=== PATIENT | male | born 1950 | race African-American/Black ===

== ENCOUNTER 2022-02-16 15:56 | Emergency (ER) | payer MEDICARE, MEDICAID, SELFPAY ==
[2022-02-16 16:05] VITALS: BP 150/80; PULSE 93; RESP 16; TEMP 36.8; O2SAT 99
--- NOTE | 2022-02-16 16:46 | ED.BURNSMOKE ---
HPI - Burn/Smoke Inhalation General Chief complaint: Burn/Smoke Inhalation Stated complaint: burn on arm Time Seen by Provider: 02/16/22 16:33 Source: patient Mode of arrival: ambulatory Limitations: no limitations History of Present Illness HPI Narrative: Patient got burn to the right forearm yesterday while grilling for the . No other injuries. Related Data Allergies Allergy/AdvReac Type Severity Reaction Status Date / Time No Known Allergies Allergy Unverified 05/14/17 14:05 Review of Systems Review of Systems: All systems reviewed & are unremarkable except as noted in HPI and below PMFSH Social History Social History Smoking status: Smoker, status unknown Alcohol intake: current Exam Narrative: General appearance: Well-developed, well-nourished Skin: Normal color, 3 x 2 cm second-degree burn at the lateral side of the right forearm Vascular: Normal peripheral pulses, normal capillary refill. Neurologic: Alert and oriented ?3 Course Vital Signs Vital signs: Vital Signs Temperature 36.8 C 02/16/22 16:05 Pulse Rate 93 02/16/22 16:05 Respiratory Rate 16 02/16/22 16:05 Blood Pressure 150/80 H 02/16/22 16:05 Pulse Oximetry 99 02/16/22 16:05 Oxygen Delivery Room Air 02/16/22 16:05 Temperature 36.8 C 02/16/22 16:05 Pulse Rate 93 02/16/22 16:05 Respiratory Rate 16 02/16/22 16:05 Blood Pressure 150/80 H 02/16/22 16:05 Pulse Oximetry 99 02/16/22 16:05 Oxygen Delivery Room Air 02/16/22 16:05 Critical Care Time Critical Care Time Critical Care Time: No Discharge Plan Discharge Clinical Impression: Second degree burn Patient Disposition: Home, Self-Care Condition: Stable Instructions: Antibiotic Form, Second-Degree Burn (ED) Additional Instructions: Return if symptoms are worsening , call your family physician for appointment, take Tylenol as as needed for aches and pain, continue home medications. Prescriptions: New silver sulfadiazine [Silvadene] 1 % cream 1 applic topical BID Qty: 20 0RF Rx Instructions: apply a 1.5 mm thickness Follow-up/Referrals: Bassem Carpenter [Other]
[2022-02-16] MEDS: TETANUS,DIPHTHERIA,AC PERTUSSIS ADULT (0.5 ML) BOOSTRIX IM (17:05)
== END 2022-02-16 17:17 | disposition home or self-care (01) ==
PROVIDERS: Emergency Provider Emergency Medicine
DX: T22.211A Burn of second degree of right forearm, initial encounter (principal); T31.0 Burns involving less than 10% of body surface; Z23 Encounter for immunization; X08.8XXA Exposure to other specified smoke, fire and flames, initial encounter
CPT/HCPCS: 90471; 90715; 99283

== ENCOUNTER 2022-06-07 05:03 | Emergency (ER) | payer MEDICARE, MEDICAID, SELFPAY ==
[2022-06-07 05:15] VITALS: BP 169/62; PULSE 102; RESP 18; TEMP 37.3; O2SAT 99
[2022-06-07] MEDS: AMOXICILLIN/CLAVULANATE K 875-125 MG TAB 1 TABLET PO (06:23)
[2022-06-07] MEDS: HYDROcodone/acetaminophen (*CRX) 5-325 MG TABLET 1 TAB PO (06:23)
--- NOTE | 2022-06-07 06:57 | ED.GENADULT ---
HPI - General Adult General Chief complaint: Dental/Oral Stated complaint: dental pain, Left side facial pain/numbness Time Seen by Provider: 06/07/22 05:39 History of Present Illness HPI narrative: A 72-year-old male presenting ED with dental pain. Patient has had long history of poor dentition. Over the last several weeks he has noticed increased swelling along his left jaw line as well as increased pain. He has been treating his pain with oral agent. However since yesterday has not been controlling his pain. He denies fever chills. He denies swelling in his mouth or his throat. Denies difficulty breathing. Patient is attempting to see a dentist however is having difficulty finding 1 due to his insurance. Related Data Allergies Allergy/AdvReac Type Severity Reaction Status Date / Time atorvastatin Allergy Intermediate Rash Verified 06/07/22 05:20 Review of Systems Review of Systems: CONSTITUTIONAL: Denies night sweats. EYES: No eye pain ENT: Denies rhinorrhea CARDIOVASCULAR: Denies palpitations RESPIRATORY: Denies hemoptysis GASTROINTESTINAL: Denies hematemesis GENITOURINARY: Denies hematuria. SKIN: Denies rash MUSCULOSKELETAL: Denies myalgia. NEUROLOGIC: Denies weakness. PSYCHIATRIC: Denies delusions PMFSH Past Medical History Medical History HTN (hypertension) Social History Social History Smoking status: Smoker, status unknown Alcohol intake: current Exam Narrative: APPEARANCE: No apparent distress. Head atraumatic. EYES: PERRLA/EOMI, NOSE: Normal no drainage NECK: Supple, Trachea midline Oral: Patient has poor dentition with caries and essentially all of his teeth. He has swear swelling in area of fluctuance along the left lower jaw line. Point of care ultrasound revealed a fluid collection along the mandible that is concerning for abscess. RESPIRATORY: CTAB, No increased work of breathing. CARDIOVASCULAR: S1S2 appreciated ABDOMINAL: Soft, nontender, nondistended, MUSCULOSKELETAl: No obvious deformities NEURO: Alert. Moving 4/4 extremities SKIN:: Warm, dry. Normal color PSYCHIATRIC: Normal affect Course Vital Signs Vital signs: Vital Signs Temperature 99.2 F 06/07/22 05:15 Pulse Rate 102 H 06/07/22 05:15 Respiratory Rate 18 06/07/22 05:15 Blood Pressure 169/62 H 06/07/22 05:15 Pulse Oximetry 99 06/07/22 05:15 Oxygen Delivery Room Air 06/07/22 05:15 Temperature 99.2 F 06/07/22 05:15 Pulse Rate 102 H 06/07/22 05:15 Respiratory Rate 18 06/07/22 05:15 Blood Pressure 169/62 H 06/07/22 05:15 Pulse Oximetry 99 06/07/22 05:15 Oxygen Delivery Room Air 06/07/22 05:15 Medical Decision Making MDM Narrative Medical decision making narrative: This is a 72-year-old male presenting ED with dental pain. He has not area of swelling along his left jaw line. He has point of care ultrasound which identified a fluid collection along patient's jaw line. This is concerning for abscess. It is too deep for me to drain in the emergency department. I discussed the option of transferring the patient to another hospital which would have a specialist to drain his abscess but he is concerned that the cost of the ambulance transport. I will provide the patient with an oral surgeon in our area. The patient would like to work with his insurance company and see if he can find outpatient management. He will also be discharged with pain medication and a course of Augmentin. If the patient is unable to arrange outpatient management of his jaw incursion return to emergency department that has an oral surgeon on staff. Vital Signs Vital Signs: Vital Signs Temperature 99.2 F 06/07/22 05:15 Pulse Rate 102 H 06/07/22 05:15 Respiratory Rate 18 06/07/22 05:15 Blood Pressure 169/62 H 06/07/22 05:15 Pulse Oximetry 99 06/07/22 05:15 Oxygen Deliver
[2022-06-07 07:25] VITALS: BP 132/85; PULSE 77; RESP 18; O2SAT 100
== END 2022-06-07 07:28 | disposition home or self-care (01) ==
PROVIDERS: Emergency Provider Emergency Medicine; PCP Physician Assistant
DX: K04.7 Periapical abscess without sinus (principal); I10 Essential (primary) hypertension
CPT/HCPCS: 99283; A9270

== ENCOUNTER 2024-04-10 14:47 | Emergency (ER) | payer MEDICARE, MEDICAID, SELFPAY ==
[2024-04-10 14:56] VITALS: BP 124/64; PULSE 71; RESP 16; TEMP 36.3; O2SAT 100
--- NOTE | 2024-04-10 15:38 | ED.SKABFB ---
HPI - Skin/Abscess/Foreign Bdy General Chief complaint: Extremity Problem,Nontraumatic Stated complaint: Right Knee Pain Source: patient, RN notes reviewed and old records reviewed Mode of arrival: ambulatory Limitations: no limitations History of Present Illness HPI narrative: Patient presents with complaints of small painful bump to the skin of the right knee cap. He reports that this has been present for approximately a month, some days it is worse than others. It can be tender to the touch. He denies any drainage. He does report sometimes it looks as though it has a head on it. He denies any fever, chills, sweats. He denies any injury or trauma. Related Data Home Medications Medication Instructions Recorded Confirmed aspirin 81 mg chewable tablet 81 mg PO DAILY 04/10/24 04/10/24 rosuvastatin 40 mg tablet 40 mg PO DAILY 04/10/24 04/10/24 Allergies Allergy/AdvReac Type Severity Reaction Status Date / Time atorvastatin Allergy Intermediate Rash Verified 04/10/24 14:52 Review of Systems Review of Systems: All systems reviewed & are unremarkable except as noted in HPI and below Constitutional: Constitutional: Reports no additional constitutional complaints ENT: Reports system reviewed and no additional complaints, except as documented Cardiovascular: Cardiovascular: Reports no additional cardiovascular complaints Respiratory: Respiratory: Reports no additional respiratory complaints Gastrointestinal: Gastrointestinal: Reports no additional gastrointestinal complaints Integumentary/Breasts: Skin/Breast: Reports as per HPI [facility] Past Medical History Medical History HTN (hypertension) Social History Social History Smoking status: Smoker, status unknown Alcohol intake: current Comments At the time of my signature, I reviewed and agree with the nursing past medical, surgical, social, and family history. There is no relevant family history pertinent to the patient complaint. Exam Const: General: cooperative, no acute distress, alert and awake Orientation/consciousness: oriented to person, oriented to place and oriented to time HENMT: Head: normal to inspection Resp: Effort & Inspection: normal respiratory effort and able to speak in complete sentences Auscultation: clear to auscultation bilaterally, no crackles, no rales, no rhonchi and no wheezes Cardio: Palpation: normal PMI Rate: regular rate Rhythm: regular rhythm Heart sounds: S1 normal heart sound present and S2 normal heart sound present Skin: Other: 1 mm pustule noted to the right knee, consistent with ingrown hair. Neuro: General: oriented to person, oriented to place and oriented to time Cranial nerves: Yes CN's II-XII intact bilaterally Psych: Appearance: grossly normal Thought process: Normal thought process present Insight: Good insight present (Psych) Judgement: Good judgement present (Psych) Course Course Level of Care: Express Care Visit Vital Signs Vital signs: Vital Signs Temperature 97.4 F L 04/10/24 14:56 Pulse Rate 71 04/10/24 14:56 Respiratory Rate 16 04/10/24 14:56 Blood Pressure 124/64 04/10/24 14:56 Pulse Oximetry 100 04/10/24 14:56 Oxygen Delivery Room Air 04/10/24 14:56 Temperature 97.4 F L 04/10/24 14:56 Pulse Rate 71 04/10/24 14:56 Respiratory Rate 16 04/10/24 14:56 Blood Pressure 124/64 04/10/24 14:56 Pulse Oximetry 100 04/10/24 14:56 Oxygen Delivery Room Air 04/10/24 14:56 Reviewed MDM - Skin/Abscess/Foreign Bdy MDM Narrative Medical decision making narrative: Patient with small pustule to the skin of the right knee. Reports symptom waxes and wanes, has been present for approximately 1 month. It appears to be an ingrown hair. Discharge home with prescription for mupirocin. Follow-up with primary care provider. Emergency department for
== END 2024-04-10 15:47 | disposition home or self-care (01) ==
PROVIDERS: Emergency Provider Nurse Practitioner Family; PCP Physician Assistant
DX: L73.1 Pseudofolliculitis barbae (principal)
CPT/HCPCS: 99213; G0463

== ENCOUNTER 2025-01-24 21:04 | Emergency (ER) | payer MEDICARE, MEDICAID, SELFPAY ==
--- OUTSIDE RECORDS SUMMARY | 2025-01-24 21:06 | XMS_ITS | Encounter Summary ---
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 Reinforcing Steel Worker Wire Mesh Name Role Phone Lulu Khanna MD Primary Care Provider Encounter Details Date Type Department Care Team (Late st Contact Info) Description 10/19/2018 Lab Requisition [facility] Care D[facility] Lab [address] [place] [id number] Glenroy Terry DO [address] [address] Social History Tobacco Use Types Packs/Day Years Used Date Smoking Tobacco: Never Assessed Sex and Gender Information Value Date Recorded Sex Assigned at Not on file Legal Sex Male 6:00 PM CDT Gender Identity Not on file Sexual Orientation Not on file documented as of this encounter Plan of Treatment Not on file documented as of this encounter Procedures Procedure Name Priority Date/Time Associated Diagnosis Comments DERMATOPATHOLOGY Routine 10/19/2018 12:0 0 AM HAND SPRING REPAIRER HELPER documented in this encounter Results * DERMATOPATHOLOGY (10/19/2018 12:00 AM HAND SPRING REPAIRER HELPER) Case Report Dermatopathology Report Case: [id number] Authorizing Provider: Glenroy Terry DO Collected: 10/19/2018 12:00 AM Pathologist: Anastasiya Bains MD Received: 10/19/2018 02:23 PM Specimen: Skin, right face 9 4:30 PM HAND SPRING REPAIRER HELPER DERMATOPATHOLOGY LABORATORY Final Diagnosis Specimen A. SKIN, right face: PIGMENTED SEBORRHEIC KERATOSIS (L82.1) 9 4:30 PM HAND SPRING REPAIRER HELPER DERMATOPATHOLOGY LABORATORY Clinical History Inflammed tag 4:30 PM [facility] DERMATOPATHOLOGY LABORATORY Gross Description Specimen A: Received is one formalin filled container labeled with the patient's name and designated right face. The specimen consists of a shave biopsy measuring 8x5x2 mm. Jar 0. 4:30 PM [facility] DERMATOPATHOLOGY LABORATORY Microscopic Description Specimen A. SKIN, right face: Sections show an acanthotic lesion composed of relatively uniform keratinocytes. There is hyperkeratosis and pseudo horn cysts. Pigment is present in the keratinocytes composing this tumor. 4:30 PM [facility] DERMATOPATHOLOGY LABORATORY Disclaimer An external and internal positive and negative controls are appropriate for the histochemical, immunohistochemical and immunofluorescence stain(s) in this case (if any), except where stated explicitly. The performance characteristics of the stain(s) cited in this report were developed and its performance characteristic determined by the Dermatopathology Laboratory at [facility], directed by Dr. Gee Dooley. These tests need not be, and therefore are not, approved by the [place] Food and Drug Administration. The tests are used for clinical purposes. Billing Codes Specimen Charges Stain Charges 40286 1 4:30 PM [facility] DERMATOPATHOLOGY LABORATORY Embedded Images 4:30 PM [facility] DERMATOPATHOLOGY LABORATORY Pathology/Cytolog y TISSUE SPECIMEN FROM SKIN / Unknown 10/19/2018 10/19/2018 2:23 PM HAND SPRING REPAIRER HELPER Glenroy Terry DO LAB - PATHOLOGY/CYTOLOGY ORDERA BLES Final Result DERMATOPATHOLOGY LABORATORY [facility] - Department of Dermatology [address] [place] [address], [address]th Floor Lab [address] [place], [place] [id number] [place] [address] documented in this encounter Visit Diagnoses Not on filedocumented in this encounter Care Teams Reinforcing Steel Worker Wire Mesh Relationship Specialty Start Date End Date Lulu Khanna MD [address] [place] [address] PCP - General 10/19/18 documented as of this encounter
--- OUTSIDE RECORDS SUMMARY | 2025-01-24 21:06 | XMS_ITS | Clinical Summary ---
Author Organization [facility] Address [address] [facility] [address] [place] [address] Care Team Providers Care Foreign Policy Officer Name Role Phone Lulu Khanna MD Primary Care Provider [phone] Source Comments [facility],non-owned Affiliates and Associated Physician Practices is amultiple site organization consisting of ambulatory clinics and hospital sitesin [place], [place], [place] and [place]. This disclosure is being madepursuant to the Care Everywhere program and may not contain all information available regarding this patient. Last updated 18.[facility] Social History Tobacco Use Types Packs/Day Years Used Date Smoking Tobacco: Never Assessed Sex and Gender Information Value Date Recorded Sex Assigned at Not on file Legal Sex Male 6:00 PM CDT Gender Identity Not on file Sexual Orientation Not on file Plan of Treatment Health Maintenance Due Date Last Done Comments COLOGUARD (AGES 45-75) - COL ON CA SCREENING 1950 COLON MONITORING 1950 COLONOSCOPY - COLON CA SCREENING 1950 CT COLONOGRAPHY - COLON CA SCREENING 1950 Colorectal Cancer Screening 1950 FIT - COLON CA SCREENING 1950 FLEX SIG - COLON CA SCREENING 1950 LIPID TESTING 1950 HEPATITIS C SCREENING 02/22/1968 DTAP/TDAP/TD VACCINES (1 - Tdap) 1969 PNEUMOCOCCAL VACCINE 50+ (1 of 1 - PCV) 02/27/2000 ZOSTER VACCINE (1 of 2) 02/27/2000 COVID-19 VACCINE ( - 2023-2 5 season) 2024 DEPRESSION SCREENING 09/19/2024 Respiratory Syncytial Virus (RSV) Vaccine Pt: or over 60 yrs (1 - 1-dose 75+ series) 2025 INFLUENZA VACCINE (Season Ended) 2025 HEPATITIS B VACCINE Aged Out No longe r eligible based on patient's age to complete this topic HIB VACCINE Aged Out No longer eligi ble based on patient's age to complete this topic HPV VACCINE Aged Out No longer eligi ble based on patient's age to complete this topic MENINGOCOCCAL (Group B) VACC INE SHARED DECISION-MAKING Aged Out No longer eligibl e based on patient's age to complete this topic MENINGOCOCCAL GROUPS A/C/Y/W VACCINE Aged Out No longer eligible b ased on patient's age to complete this topic Care Teams Foreign Policy Officer Relationship Specialty Start Date End Date Lulu Khanna MD [address] [place] [address] PCP - General 10/19/18
--- OUTSIDE RECORDS SUMMARY | 2025-01-24 21:07 | XMS_ITS | Clinical Summary ---
Author Organization [facility] Address [address] [place] [id number] Care Team Providers Care Nail Welter Name Role Phone Mindy Oseguera NP Primary Care Provider [phone] Allergies Active Allergy Reactions Criticality Noted Date Comments Atorvastatin Rash Medium 10/30/2019 Alendronate Unknown 10/19/2023 Medications aspirin 81 mg enteric coated tablet Take 1 tablet (81 mg total) by mouth daily Active ibotokdr-vuo-HV-lycopen -lutein 0.4-300-250 mg-mcg-mcg tabletIndications:Vitam in Deficiency Prevention 1 tablet Active solifenacin (VESIcare) 10 mg tablet Take 1 tablet (10 mg total) by mouth daily 90 tablet 3 023 Active Additional Information Patient not taking.Reported on 09/10/2024 calcium carbonate-vitamin D3 1,500 mg (600 mg elemental)-400 unit capsule Take 1 capsule by mouth daily 30 capsule 5 024 Active rosuvastatin (CRESTOR) 40 mg tabletIndications:Pure hypercholesterolemia Take 1 tablet (40 mg total) by mouth daily 024 2024 Active triamcinolone (KENALOG) 0.1 % cream Apply topically 2 (two) times a day 30 g 1 024 Active Active Problems Problem Noted Date Diagnosed Date Medicare annual wellness visit, subsequent 09/14 Assessment & Plan (09/14/2024 8:55 AM GENERAL HELPER): CBC, CMP, lipid panel, PSA ordered. Colonoscopy last completed: 09/2023 Vaccinations: COVID, Shingrix, Prevnar, Pneumovax, Flu Lung caner screening CT last completed 09/2023, repeat CT ordered. AAA screening US completed 08/2023 with stable results. Repeat wellness exam in one year. Bilateral sciatica 01/04/2024 Assessment & Plan (01/04/2024 10:06 AM CDT): We are going to start with a Medrol Dosepak and an x-ray of the lumbar spine physical therapy is an option further evaluation and treatment based on results and x-ray Atypical nevi 09/07/2023 Assessment & Plan (09/07/2023 11:44 AM GENERAL HELPER): Concerning, sending to derm Age-related osteoporosis apolonia youssef current pathological fracture 09/07/2023 Assessment & Plan (09/14/2024 8:51 AM GENERAL HELPER): Chronic, controlled with daily Vitamin D and Calcium supplements. Patient was unable to tolerate bisphosphonate causes vomiting and muscle cramping. DEXA scan UTD repeat next year. Assessment & Plan (03/12/2024 6:44 AM CDT): Can not tolerate fosomax, will stay with calcium and vitamin D Assessment & Plan (10/19/2023 11:06 AM GENERAL HELPER): Can not tolerate fosomax, will stay with calcium and vitamin D Assessment & Plan (09/29/2023 12:37 PM GENERAL HELPER): Chronic, uncontrolled. Patient to discontinue Fosamax due to muscle cramping. Patient to begin daily calcium and vitamin D supplement. Patient to follow up with DEVANTE Carpenter in 3 weeks to discuss other treatment options for his osteoporosis. Assessment & Plan (09/07/2023 12:38 PM GENERAL HELPER): Educated, discussed options, elected to start Fosamax. 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 Follow up in 6 months. Assessment & Plan (01/02/2024 6:22 AM CDT): Continue D, add calcium Assessment & Plan (09/07/2023 12:33 PM GENERAL HELPER): Continue D, add calcium Assessment & Plan (06/02/2022 10:57 AM CDT): Continue vitamin-D Assessment & Plan (03/16/2021 11:19 AM CDT): Continue taking 5000 daily Assessment & Plan (09/10/2020 12:03 PM GENERAL HELPER): CPM Assessment & Plan (03/12/2020 11:35 AM CDT): CPM History of prostate cancer 02/01/2018 Assessment & Plan (09/10/2024 11:16 AM GENERAL HELPER): Diagnosed in 2014, underwent radiation treatment. Following with urology yearly. Assessment & Plan (01/02/2024 6:22 AM CDT): Stable with no issues Assessment & Plan (09/07/2023 12:33 PM GENERAL HELPER): Stable with no issues Assessment & Plan (07/05/2023 12:08 PM CDT): stable Assessment & Plan (06/02/2022 10:56 AM CDT): Patient is stable and followed by Urology Assessment & Plan (03/16/2021 11:18 AM CDT): Patient is followed by Urology and doing well Assessment & Plan (03/12/2020 11:32 AM CDT): Followed by oncology Tinnitus of both ears 01/27/2018 Assessment & Plan (03/12/2020 11:34 AM CDT): This is new to me, we did discuss options will send to ENT/Audiology for eval Mixed hyperlipidemia 04/25/2017 Assessment & Plan (09/14/2024 8:52 AM GENERAL HELPER): Chronic, controlled with Crestor 40 mg daily. Follow up in 6 months. Lab Results Component Value Date CHOL 187 09/10/2024 CHOL 176 03/13/2024 CHOL 266 (H) 07/05/2023 Lab Results Component Value Date HDL 61 09/10/2024 HDL 54 03/13/2024 HDL 64 07/05/2023 Lab Results Component Value Date LDLCALC 107 09/10/2024 LDLCALC 102 03/13/2024 LDLCALC 185 (H) 07/05/2023 Lab Results Component Value Date TRIG 108 09/10/2024 TRIG 102 03/13/2024 TRIG 86 07/05/2023 Assessment & Plan (03/12/2024 6:44 AM CDT): Patient is to continue present medications, work on diet and exercise as discussed, we did discuss the medications and potential side effects and signs and symptoms that would warrant calling office. Follow up routine. Assessment & Plan (01/02/2024 6:22 AM CDT): Patient is to continue present medications, work on diet and exercise as discussed, we did discuss the medications and potential side effects and signs and symptoms that would warrant calling office. Follow up routine. Assessment & Plan (10/19/2023 11:08 AM GENERAL HELPER): Patient is to continue present medications, work on diet and exercise as discussed, we did discuss the medications and potential side effects and signs and symptoms that would warrant calling office. Follow up routine. Assessment & Plan (09/07/2023 12:33 PM GENERAL HELPER): Patient is to continue present medications, work on diet and exercise as discussed, we did discuss the medications and potential side effects and signs and symptoms that would warrant calling office. Follow up routine. Assessment & Plan (01/12/2023 2:41 PM CDT): Patient is to continue present medications, work on diet and exercise as discussed, we did discuss the medications and potential side effects and signs and symptoms that would warrant calling office. Follow up routine. Assessment & Plan (06/02/2022 10:56 AM CDT): Continue current meds, labs as ordered, adjustments will be made as needed Assessment & Plan (11/30/2021 3:40 PM CDT): Patient is to continue present medications, work on diet and exercise as discussed, we did discuss the medications and potential side effects and signs and symptoms that would warrant calling office. Follow up routine. Assessment & Plan (03/16/2021 11:18 AM CDT): Patient is to continue present medications, work on diet and exercise as discussed, we did discuss the medications and potential side effects and signs and symptoms that would warrant calling office. Follow up routine. Assessment & Plan (02/12/2021 1:49 PM CDT): Patient is to continue present medications, work on diet and exercise as discussed, we did discuss the medications and potential side effects and signs and symptoms that would warrant calling office. Follow up routine. Assessment & Plan (09/10/2020 12:02 PM GENERAL HELPER): Diet and labs as ordered Assessment & Plan (03/12/2020 11:33 AM CDT): Very mild, OTC fish oil, diet and exercise, labs next visit PAD (peripheral artery disease) ([facility]/HCC) 2016 Assessment & Plan (09/14/2024 8:53 AM GENERAL HELPER): Chronic, stable. Patient to continue on Crestor 40 mg daily. Follow up in 6 months. Assessment & Plan (03/12/2024 6:44 AM CDT): This is stable and non-smoker Assessment & Plan (01/02/2024 6:22 AM CDT): This is stable and non-smoker Assessment & Plan (10/19/2023 11:05 AM GENERAL HELPER): This is stable and non-smoker Assessment & Plan (07/05/2023 12:08 PM CDT): Stable, no current issues Assessment & Plan (01/12/2023 2:41 PM CDT): Not a current issue Assessment & Plan (06/02/2022 10:56 AM CDT): Patient is stable will continue to follow Assessment & Plan (11/30/2021 3:39 PM CDT): Currently no issues Assessment & Plan (03/16/2021 11:18 AM CDT): Patient had recent screening that was within normal limits will continue to follow Assessment & Plan (09/10/2020 12:02 PM GENERAL HELPER): Not an issue Assessment & Plan (03/12/2020 11:33 AM CDT): Currently not an issue, must stop smoking, I offered my assistance Acquired absence of left leg above knee 06/04/20 Assessment & Plan (09/14/2024 8:46 AM GENERAL HELPER): Patient has left lower leg prostatic, received 2 years ago. He ambulates with prostatic and a cane. Denies any recent falls. Follow up in 6 months. Assessment & Plan (03/12/2024 6:43 AM CDT): No current issues Assessment & Plan (01/02/2024 6:22 AM CDT): No current issues Assessment & Plan (10/19/2023 11:05 AM GENERAL HELPER): No current issues Assessment & Plan (09/07/2023 12:27 PM GENERAL HELPER): Stable with no issues Assessment & Plan (07/05/2023 12:07 PM CDT): No current issues Assessment & Plan (03/02/2023 10:59 AM CDT): stable Assessment & Plan (01/12/2023 2:41 PM CDT): Has prosthesis Assessment & Plan (06/02/2022 10:54 AM CDT): Patient has a new prosthesis and is having no issues Assessment & Plan (11/30/2021 3:40 PM CDT): Stable, will follow Assessment & Plan (03/16/2021 11:18 AM CDT): Patient has prosthesis and is doing well Assessment & Plan (09/10/2020 12:02 PM GENERAL HELPER): Will follow Assessment & Plan (03/12/2020 11:32 AM CDT): Pending new prosthesis, no issues Enlarged prostate with lower urinary tract sympt oms (LUTS) 06/04/2016 Assessment & Plan (09/14/2024 8:52 AM GENERAL HELPER): Chronic, stable patient following with urology. No longer taking any medications. Assessment & Plan (03/12/2024 6:43 AM CDT): This is currently stable will continue to Assessment & Plan (01/02/2024 6:22 AM CDT): This is currently stable will continue to Assessment & Plan (06/02/2022 10:55 AM CDT): Patient sees urology is currently controlled with medication Assessment & Plan (03/16/2021 11:18 AM CDT): Patient is seen Neurology in doing well Assessment & Plan (03/12/2020 11:32 AM CDT): Currently controlled with no medications, will follow Resolved Problems Problem Noted Date Diagnosed Date Resolved Date Muscle cramping 09/29/2023 09/14/2024 Assessment & Plan (09/29/2023 12:36 PM GENERAL HELPER): Patient to discontinue Fosamax. Patient given Toradol injection 60 mg in office. Patient prescribed Tramadol 50 mg TID PRN for pain. Patient to increase daily water intake. Follow up with DEVANTE Carpenter in 3 weeks. Right leg pain 07/05/2023 09/10/2024 Left elbow pain 07/05/2023 09/10/2024 Assessment & Plan (07/05/2023 11:28 AM CDT): New, not controlled, start with x-ray Near syncope 03/02/2023 09/10/2024 Assessment & Plan (03/02/2023 11:00 AM CDT): Suspect due to smoking pot, dong great now, educated BRBPR (bright red blood per rectum) 01/12/2023 09/10/2024 Assessment & Plan (01/12/2023 2:42 PM CDT): Colonoscopy UTD, suspect hemorrhoids, add fiber to diet, if this returns will get colonscopy Genital lesion, male 12/28/2022 024 Assessment & Plan (12/28/2022 6:55 PM CDT): One round shaped lesion with smaller vesicle like lesions within, mild drainage, itching+, tenderness + Likely genital herpes Valtrex 1g BID x 10 days STD work-up: GC urine, trich urine, RPR, HIV 1/2 UA negative Follow up with PCP for persisting symptoms Go to the ER if symptoms worsen, fever, chills, nausea, vomiting, abdominal pain, Dental abscess 06/08/2022 09/10/2024 Assessment & Plan (06/08/2022 4:35 PM CDT): - pt reassured no signs of stroke causing numbness to face - neuro exam normal. - suspect numbness of lip/jaw due to compression of nerve from infection - continue augmentin - f/u with dental apt to have tooth pulled Hordeolum externum of left lower eyelid 04/23/2021 09/10/2024 Assessment & Plan (04/23/2021 1:57 PM CDT): Hot compress, massage and medications if this does not resolve will send to optometry BMI 30.0-30.9,adult 01/28/2021 09/10/20 24 Assessment & Plan (01/28/2021 1:12 PM CDT): Healthy diet exercise and weight reduction follow-up 6 months Bronchitis 01/28/2021 09/10/2024 Assessment & Plan (02/12/2021 1:50 PM CDT): Lungs sound much better, good pulse ox, suspect mild COPD, will hold off on inhaled steroids, will add mucinex Assessment & Plan (02/05/2021 12:03 PM CDT): I want patient to finish his doxycycline I am going to add 1 g Rocephin today repeat is Medrol Dosepak and give him a Proventil inhaler I will follow-up with him next week Cough 01/28/2021 09/10/2024 Assessment & Plan (02/05/2021 12:04 PM CDT): Continue [id number] Robitussin and Mucinex medicines as ordered follow-up on Patient was doing better after I gave him a hand-held nebulizer Cellulitis of right lower extremity 03/12/2020 09/10/2024 Assessment & Plan (03/12/2020 11:35 AM CDT): This is new, medications as ordered, skin care, we did discuss s/s that would warrant further eval and treatment Smoker 10/03/2017 09/14/2024 Assessment & Plan (10/19/2023 11:05 AM GENERAL HELPER): Quit 3 months ago Assessment & Plan (09/07/2023 12:33 PM GENERAL HELPER): Encourage stopping Assessment & Plan (06/02/2022 10:56 AM CDT): Patient and I had a detailed discussion on smoking cessation. We did discuss the numerous options to include medications, patches and gum. I have offered my assistance and we did discuss the option for smoking sensation class. Assessment & Plan (11/30/2021 3:38 PM CDT): Patient and I had a detailed discussion on smoking cessation. We did discuss the numerous options to include medications, patches and gum. I have offered my assistance and we did discuss the option for smoking sensation class. Assessment & Plan (03/16/2021 11:19 AM CDT): Patient and I had a detailed discussion on smoking cessation. We did discuss the numerous options to include medications, patches and gum. I have offered my assistance and we did discuss the option for smoking sensation class. Assessment & Plan (02/05/2021 12:04 PM CDT): Patient and I had a detailed discussion on smoking cessation. We did discuss the numerous options to include medications, patches and gum. I have offered my assistance and we did discuss the option for smoking sensation class. Spent 3 minutes discussing with patient the importance of quitting smoking and options for doing so he is going to use some nicotine gum Assessment & Plan (03/12/2020 11:34 AM CDT): Patient and I had a detailed discussion on smoking cessation. We did discuss the numerous options to include medications, patches and gum. I have offered my assistance and we did discuss the option for smoking sensation class. Nicotine dependence, cigaret chanel, uncomplicated 06/04/2016 09/14/2024 Assessment & Plan (02/12/2021 1:49 PM CDT): He quit smoking and is using nicotine gum Assessment & Plan (09/10/2020 12:02 PM GENERAL HELPER): quit Assessment & Plan (03/12/2020 11:33 AM CDT): Patient and I had a detailed discussion on smoking cessation. We did discuss the numerous options to include medications, patches and gum. I have offered my assistance and we did discuss the option for smoking sensation class. Solitary pulmonary nodule 06/04/2016 Assessment & Plan (07/05/2023 12:09 PM CDT): This showed stability, no further work up Assessment & Plan (03/16/2021 11:19 AM CDT): Patient's last CT in 2017 revealed stability for greater than 2 years no further follow-up was recommended Assessment & Plan (09/10/2020 12:03 PM GENERAL HELPER): 2 year stability, no furhter work up from CT 2017 Assessment & Plan (03/12/2020 11:34 AM CDT): 2 year stability in 2017, no further imaging Encounters Date Type Department Care Team Description 01/16/2025 Results Follow-Up [facility] [address] [place] [address] [address] [place] [address] Mindy Oseguera NP 01/04/2025 1:28 PM CDT - 01/04/2025 11:59 PM CDT Hospital Encounter [facility] [address] [place] [address] Nicotine dependence, cigarettes, in remission Discharge Disposition: Discharge to home or self care from Last 3 Months Immunizations Immunization Administration Dates Next Due Influenza, Quad, Adjuvantate d, Intramuscular 06/16/2023,07/08/2022,06/04/2020 Influenza, Quadrivalent, Angeline l Culture-based MDCK, Antibiotic Free, Intramuscular 07/03/2019 Influenza, Quadrivalent, Spl it, Preservative Free, Intramuscular 07/11/2017 Influenza, Trivalent, Adjuva nted, Intramuscular 07/21/2018 Influenza, Trivalent, High D ose, Split, Preservative Free, Intramuscular 06/29/2024,05/31/2016 Influenza, Trivalent, IM (MDV) 06/19/2016 Influenza, Trivalent, Preser vative Free, Intramuscular 06/04/2020,08/10/2015 Influenza, Unspecified 06/16/2023,2021,08/02/2021(Defer red: Patient Refused),08/02/2021(Deferred: Patient Refused),06/04/2020,07/03/2019, 019 Pfizer SARS-CoV-2 Monovalent Vaccination (12+ Yrs) PURPLE 08/11/2021,12/30/2020,12/09/2020 Pneumococcal Conjugate PCV 13 03/16/2021 Pneumococcal Polysaccharide PPV23 07/11/2017 RSV Vaccine, Pref, Recombina nt, Subunit, Adjuvanted, PF, IM (Arexvy) 10/30/2023 Tdap 02/16/2022 ZOSTER Recombinant 08/14/2019,06/11/2019 Surgical History Surgery Date Site/Laterality Comments COLONOSCOPY AMPUTATION Left left leg at 10 years old KNEE CARTILAGE SURGERY Right 07/2016 Medical History Medical History Date Comments Hyperlipidemia Prostate cancer (HCC) 2015 History of radiation therapy 2016 Solitary pulmonary nodule 06/04/2016 Colon polyp Chronic bronchitis (HCC) Family History Medical History Relation Name Comments No Known Problems Father Pancreatic cancer Maternal Grandmother Colon cancer Mother Relation Name Status Comments Father (Age 40's) Maternal Grandmother Mother (Age 81) Social History Tobacco Use Types Packs/Day Years Used Date Smoking Tobacco: Former Cigarettes 0 02/1966 - 02/2021 Smokeless Tobacco: Never Tobacco Cessation:Counseling Given: Not Answered Alcohol Use Standard Drinks/Week Comments Yes 0 (1 standard drink = 0.6 oz pur e alcohol) AUDIT-C Answer Date Recorded Q1: How often do you have a drink containing alc ohol? Monthly or less 09/10/2024 Q2: How many drinks containi ng alcohol do you have on a typical day when you are drinking? 1 or 2 09/10/2024 Q3: How often do you have si x or more drinks on one occasion? Never 09/10/2024 PHQ-2 Answer Date Recorded PHQ-2 Total Score (If total score is 3 or more points, staff should administer the PHQ-9) 0 09/10/2024 Personal Safety Answer Date Recorded Have you ever been in or are you currently in a harmful physical or emotional relationship or is someone making you feel afraid or unsafe? Denies 10/15/2023 Sex and Gender Information Value Date Recorded Sex Assigned at Not on file Legal Sex Male 1:01 PM GENERAL HELPER Gender Identity Not on file Sexual Orientation Not on file Obstetrics History Last Filed Vital Signs Vital Sign Reading Time Taken Comments Blood Pressure 118/80 09/10/2024 10:59 AM GENERAL HELPER Pulse 72 09/10/2024 10:59 AM GENERAL HELPER Temperature 36.1 C (97 F) 09/10/2024 10:59 AM GENERAL HELPER Respiratory Rate 16 09/10/2024 10:59 AM GENERAL HELPER Oxygen Saturation 95% 09/10/2024 10:59 AM GENERAL HELPER Inhaled Oxygen Concentration - - Weight 94.5 kg (208 lb 6.4 oz) 09/10/2024 10:59 AM GENERAL HELPER Height 185.4 cm (6' 1 ) 09/10/2024 10:59 AM GENERAL HELPER Body Mass Index 27.5 09/10/2024 10:59 AM GENERAL HELPER Plan of Treatment Health Maintenance Due Date Last Done Comments Hepatitis B Screening 02/27/1968 Covid-19 Vaccine (2023-10 5 season) 2024 06/29/2024, 06/16/2023, 06/30/2022, Additional history exists Depression Screening 09/10/2025 09/10/2024, 07/05/2023, 05/06/2023, Additional history exists Fall Risk Assessment 09/10/2025 09/10/2024, 07/05/2023, 05/06/2023, Additional history exists Well Visit 65+ 09/10/2025 09/10/2024, 08/20, 07/05/2023, Additional history exists Lung Cancer Screening 01/05/2026 01/04/2025, 024 Prostate Cancer Screening-PSA 09/10/2026, 07/05/2023, 06/02/2022, Additional history exists Colon Cancer Screening-Colonoscopy 10/10/2028 10/10/2023, 05/11/2021, 10/31/2019 DTaP/Tdap/Td Vaccine (2 - Td or Tdap) 02/17/2032 02/16/2022 Zoster Vaccine Completed 08/14/2019, 06/11/2019 Hepatitis C Screening Completed 09/14/2019, 019 Pneumococcal vaccine 65+ Completed 03/16/2021, 06/20 Abdominal Aortic Aneurysm (A AA) Screen Completed 09/01/2023, 09/14/2019, 10/23/2015, Additional history exists Colon Cancer Screening-CT Colonography Discontinued 10/10/2023, 05/11/2021, 10/31/2019 Colon Cancer Screening-DNA Stool Discontinued 10/10/2023, 05/11/2021, 10/31/2019 Colon Cancer Screening-FIT Discontinued 10/10, 05/11/2021, 10/31/2019 Colon Cancer Screening-Sigmoidoscopy Discontinued 10/10/2023, 05/11/2021, 10/31/2019 Influenza Vaccine Completed 06/29/2024, , 06/16/2023, Additional history exists Procedures Procedure Name Priority Date/Time Associated Diagnosis Comments CT LUNG CANCER SCREENING Schedule Routine, Read Routine (OP Routine) 01/04/2025 1:38 PM CDT Nicotine dependence, cigarettes, in remission PSA SCREEN Routine 09/10/2024 11:55 AM GENERAL HELPER History of prostate cancer COLONOSCOPY 10/10/2023 9:51 AM GENERAL HELPER US ABDOMINAL AORTIC ANEURYSM SCREENING Schedule Routine, Read Routine (OP Routine) 09/01/2023 10:00 AM GENERAL HELPER Screening for AAA (abdominal aortic aneurysm) HEPATITIS C ANTIBODY Routine 09/14/2019 8:27 AM GENERAL HELPER Need for hepatitis C screening test from Last 3 Months or Most Recently Relevant to Health Maintenance Results * CT Lung Cancer Screening (01/04/2025 1:38 PM CDT) Anatomical Region Laterality Modality Chest N/A Computed Tomogra phy 01/15/2025 12:5 9 PM CDT Narrative 01/15/2025 1:10 PM CDT EXAM DESCRIPTION: CT LUNG CANCER SCREENING REASON FOR STUDY: Screening CT of the chest in a former smoker with a 30 pack year smoking history. Additional history: History of prostate cancer.. TECHNIQUE: Low dose CT scan of the chest was performed without intravenous contrast using helical scanning technique. The exam extends from the lung apices through the lung bases. Automatic exposure control was used as a dose optimization technique. NOTE: This study was performed for the specific purposes of lung cancer screening and is not an alternative to diagnostic chest CT. RADIATION DOSE: CT dose index volume (CTDIvol) = 2.89 mGy COMPARISON: 10/11/2023 FINDINGS: SMOKING RELATED LUNG DISEASE: There are mild emphysematous changes of lungs with scattered mild subsegmental atelectasis and scarring. There is redemonstration of the scattered mild interlobular septal thickening with associated reticulations, which is most significant in the periphery of the bilateral lungs, and is concerning for mild chronic nonspecific interstitial changes, possibly due to sequela of prior airspace disease. There is mild biapical pleural thickening and scarring. There is no definite evidence of a pneumothorax. The central airways are grossly patent. There is no definite evidence of a focal consolidation or pleural effusion. LUNG NODULES: There are scattered pulmonary nodules noted, similar to the prior study. For example, there is a stable 0.3 cm pulmonary nodule in the anterolateral right upper lobe abutting the right minor fissure (axial image 127). There is a stable 0.4 cm pulmonary nodule in the anterior right lower lobe abutting the right minor fissure (axial image 127). There is stable 0.5 cm subpleural pulmonary nodule in the posterolateral right lower lobe (axial image 130). There is a stable subpleural 0.3 cm pulmonary nodule in the anterior right middle lobe (axial image 162). There is a stable subpleural 0.4 cm pulmonary nodule in the lateral left upper lobe (axial image 105). There is stable 0.3 cm pulmonary nodule in the posterolateral left lower lobe (axial image 197). CORONARY ARTERY CALCIFICATION: Present. OTHER: The heart size is normal. There is no definite evidence of a pericardial effusion. There are atherosclerotic changes of the coronary vessels. There are mild atherosclerotic changes of the thoracic aorta. There is no definite unenhanced CT evidence of mediastinal, hilar, or axillary lymphadenopathy. There are scattered subcentimeter mediastinal lymph nodes noted with largest measuring 0.5 cm in the precarinal region (axial image 109). Calcified right hilar lymph nodes are noted. There is small hiatal hernia. There are bilateral Bochdalek's hernias. The visualized portions of the bilateral adrenal glands are grossly stable. There is a minimal dextroscoliotic curvature of the spine with degenerative changes. IMPRESSION: Redemonstration of scattered pulmonary nodules measuring up to 0.5 cm, similar to the prior study. No definite evidence of a new suspicious pulmonary nodule. Mild emphysematous changes of lungs with scattered mild subsegmental atelectasis and scarring. Lung-RADS category 2: Benign appearance or behavior. Recommendation: Low dose Screening CT of chest in 12 months. THIS IS AN ELECTRONICALLY VERIFIED FINAL REPORT 01/15/2025 1:10 PM - Electronically signed by Edward Resendez D.O. PS: PS Report ID: [id number] Reading Location: [id number] Procedure Note Edward Resendez, - 01/15/2025 EXAM DESCRIPTION: CT LUNG CANCER SCREENING REASON FOR STUDY: Screening CT of the chest in a former smoker with a30 pack year smoking history. Additional history: History of prostatecancer.. TECHNIQUE: Low dose CT scan of the chest was performed without intravenous contrast using helical scanning technique. The exam extends from the lung apices through the lung bases. Automatic exposure control was used as adose optimization technique. NOTE: This study was performed for the specific purposes of lung cancer screening and is not an alternative to diagnostic chest CT. RADIATION DOSE: CT dose index volume (CTDIvol) = 2.89 mGy COMPARISON: 10/11/2023 FINDINGS: SMOKING RELATED LUNG DISEASE: There are mild emphysematouschanges of lungs with scattered mild subsegmental atelectasis and scarring. Thereis redemonstration of the scattered mild interlobular septal thickening with associated reticulations, which is most significant in the periphery ofthe bilateral lungs, and is concerning for mild chronic nonspecificinterstitial changes, possibly due to sequela of prior airspace disease. There is mild biapical pleural thickening and scarring. There is no definite evidenceof a pneumothorax. The central airways are grossly patent. There is nodefinite evidence of a focal consolidation or pleural effusion. LUNG NODULES: There are scattered pulmonary nodules noted, similar tothe prior study. For example, there is a stable 0.3 cm pulmonary nodule inthe anterolateral right upper lobe abutting the right minor fissure (axialimage 127). There is a stable 0.4 cm pulmonary nodule in the anterior rightlower lobe abutting the right minor fissure (axial image 127). There is stable0.5 cm subpleural pulmonary nodule in the posterolateral right lower lobe(axial image 130). There is a stable subpleural 0.3 cm pulmonary nodule in the anterior right middle lobe (axial image 162). There is a stablesubpleural 0.4 cm pulmonary nodule in the lateral left upper lobe (axial image 105). There is stable 0.3 cm pulmonary nodule in the posterolateral left lowerlobe (axial image 197). CORONARY ARTERY CALCIFICATION: Present. OTHER: The heart size is normal. There is no definite evidence of a pericardial effusion. There are atherosclerotic changes of the coronary vessels. There are mild atherosclerotic changes of the thoracic aorta. There is no definite unenhanced CT evidence of mediastinal, hilar, oraxillary lymphadenopathy. There are scattered subcentimeter mediastinal lymphnodes noted with largest measuring 0.5 cm in the precarinal region (axial image 109). Calcified right hilar lymph nodes are noted. There is small hiatal hernia. There are bilateral Bochdalek's hernias.The visualized portions of the bilateral adrenal glands are grossly stable. There is a minimal dextroscoliotic curvature of the spine withdegenerative changes. IMPRESSION: Redemonstration of scattered pulmonary nodules measuring up to 0.5 cm, similar to the prior study. No definite evidence of a new suspiciouspulmonary nodule. Mild emphysematous changes of lungs with scattered mild subsegmental atelectasis and scarring. Lung-RADS category 2: Benign appearance or behavior. Recommendation: Low dose Screening CT of chest in 12 months. THIS IS AN ELECTRONICALLY VERIFIED FINAL REPORT 01/15/2025 1:10 PM - Electronically signed by Edward Resendez D.O. PS: PS Report ID: [id number] Reading Location: [place] [id number] us Mindy Oseguera [employer]S AIDE IMG CT PROCEDURES Final Result * PSA screen (09/10/2024 11:55 AM GENERAL HELPER) PSA-Total 0.68 <=6.20 ng/mL Comment: Interpretive Data AGE SEX REFERENCE INTERVAL 0 minutes-150 years Female None 0 minutes-49 years Male None 50-59 years Male 0-3.90 60-69 years Male 0-5.40 70-79 years Male 0-6.20 80-150 years Male 0-6.20 The Naseem PSA Total assay procedure was used. Results from different manufacturers or methods may not be comparable. Serial testing should be performed using the same method. Current interpretive data last revised 22. Testing performed by: [facility], [address] [place] [address]., [id number] Blood 09/10/2024 11:5 5 AM GENERAL HELPER 09/10/2024 1:00 PM GENERAL HELPER us Mindy Oseguera NP LAB BLOOD ORDERABLES Final Res ult [facility] [address] [place] [address] * COLONOSCOPY (10/10/2023 9:51 AM GENERAL HELPER) Anatomical Region Laterality Modality Other Narrative Procedure Note Jass Godfrey MD - 10/10/2023 9:51 AM CST [facility] GI ENDOSCOPY Patient Name: Onel Flynn Procedure Date: 10/10/2023 9:51 AM Date of : 1950 Admit Type: Outpatient Age: 73 Gender: Male Attending MD: Jass Godfrey M.D. Room: [facility] ENDOSCOPY ROOM 05 Note Status: Finalized Procedure: Colonoscopy Indications: High risk colon cancer surveillance: Personalhistory of colonic polyps Referring MD: Cecilio Carpenter PA-C Providers: Jass Godfrey M.D. Medicines: Monitored Anesthesia Care Complications: No immediate complications. Estimated Blood Loss: Estimated blood loss was minimal. Procedure: The benefits, risks and alternatives of theprocedure and sedation were discussed and informed consentwas obtained. All questions were answered. Please referto the signed informed consent document in the medical record. The scope was passed under direct vision.The CF-[id number] colonoscope was introduced through theanus and advanced to the cecum, identified byappendiceal orifice and ileocecal valve. The colonoscopy was performed without difficulty. The patient tolerated the procedure well. The quality of the bowel preparation was evaluated using the BBPS (BostonBowel Preparation Scale) with scores of: Right Colon = 3, Transverse Colon = 3 and Left Colon = 3 (entiremucosa seen well with no residual staining, smallfragments of stool or opaque liquid). The total BBPS score equals 9. The ileocecal valve, appendiceal orifice, and rectum were photographed. Findings: The perianal and digital rectal examinations were normal. Three sessile polyps were found in the transverse colon. The polypswere 3 to 5 mm in size. These polyps were removed with a cold snare. Resection and retrieval were complete. Estimated blood loss wasminimal. A 4 mm polyp was found in the ascending colon. The polyp was sessile. The polyp was removed with a cold snare. Resection and retrieval were complete. Estimated blood loss was minimal. Two sessile polyps were found in the ascending colon. The polyps were3 to 5 mm in size. These polyps were removed with a cold snare.Resection and retrieval were complete. Estimated blood loss was minimal. Three sessile polyps were found in the descending colon. The polypswere 3 to 5 mm in size. Estimated blood loss was minimal. Two sessile polyps were found in the sigmoid colon. The polyps were 2to 4 mm in size. These polyps were removed with a cold snare. Resectionand retrieval were complete. Estimated blood loss was minimal. Non-bleeding internal hemorrhoids were found during retroflexion. The hemorrhoids were severe. The exam was otherwise without abnormality on direct and retroflexion views. Impression: - Three 3 to 5 mm polyps in the transverse colon, removed with a cold snare. Resected andretrieved. - One 4 mm polyp in the ascending colon, removedwith a cold snare. Resected and retrieved. - Two 3 to 5 mm polyps in the ascending colon,removed with a cold snare. Resected and retrieved. - Three 3 to 5 mm polyps in the descending colon. - Two 2 to 4 mm polyps in the sigmoid colon,removed with a cold snare. Resected and retrieved. - Non-bleeding internal hemorrhoids. - The examination was otherwise normal on directand retroflexion views. Recommendation: - Discharge patient to home. - Resume previous diet. - Continue present medications. - Await pathology results. - Repeat colonoscopy in 3 years for surveillance. - Patient has a contact number available for emergencies. The signs and symptoms of potential delayed complications were discussed with thepatient. Return to normal activities tomorrow. Written discharge instructions were provided to thepatient. Jass Godfrey M.D. Jass Godfrey M.D. 10/10/2023 10:47:16 AM . Number of Addenda: 0 Note Initiated On: 10/10/2023 9:51 AM Recognized by the [place] [employer] for promoting quality in endoscopy us Jass Godfrey MD ENDOSCOPY PROCEDURES Fin al Result * US Abdominal Aortic Aneurysm Screening (09/01/2023 10:00 AM GENERAL HELPER) Anatomical Region Laterality Modality Abdomen Ultrasound 09/02/2023 8:14 AM GENERAL HELPER Narrative 09/02/2023 8:15 AM GENERAL HELPER EXAM DESCRIPTION: US ABDOMINAL AORTIC ANEURYSM SCREENING REASON FOR STUDY: Abdominal aortic aneurysm screening. TECHNIQUE: Grayscale images acquired of the aorta and stored on PACS. Selected color Doppler and spectral images recorded. COMPARISON: None. FINDINGS: AORTIC CALIBER MAXIMAL PROXIMAL: 2.3 x 2.7 cm. MID: 2.0 x 2.0 cm. DISTAL: 1.9 x 1.8 cm. ILIAC DIAMETER RIGHT: 1.6 x 1.1 cm. LEFT: 1.2 x 1.3 cm. OTHER: No other significant finding. IMPRESSION: No abdominal aortic aneurysm. REFERENCE: Please see below follow up recommendations for abdominal aortic aneurysm surveillance per Society for Vascular Surgery Guidelines: < 2.5 cm No follow up necessary 2.52.9 cm Recommended ultrasound follow up every 10 years 3.0-3.9 cm Recommended ultrasound follow up every 3 years 4.0-4.9 cm Recommended ultrasound follow up every 12 months, vascular surgery consult 5.0-5.4 cm Recommended ultrasound follow up every 6 months, vascular surgery consult >= 5.5 cm Referral to vascular surgeon Based upon Society for Vascular Surgery Guidelines: J Vasc Surgery 2008 50: s2s49; updated Sep 2017 J Vasc Surgery 67:277 THIS IS AN ELECTRONICALLY VERIFIED FINAL REPORT 09/02/2023 8:15 AM - Electronically signed by Kuldip Winn M.D. CH: MILDRED Report ID: [id number] Reading Location: [id number] Procedure Note Kuldip Winn Jr., MD - 09/02/2023 EXAM DESCRIPTION: US ABDOMINAL AORTIC ANEURYSM SCREENING REASON FOR STUDY: Abdominal aortic aneurysm screening. TECHNIQUE: Grayscale images acquired of the aorta and stored on PACS.Selected color Doppler and spectral images recorded. COMPARISON: None. FINDINGS: AORTIC CALIBER MAXIMAL PROXIMAL: 2.3 x 2.7 cm. MID: 2.0 x 2.0 cm. DISTAL: 1.9 x 1.8 cm. ILIAC DIAMETER RIGHT: 1.6 x 1.1 cm. LEFT: 1.2 x 1.3 cm. OTHER: No other significant finding. IMPRESSION: No abdominal aortic aneurysm. REFERENCE: Please see below follow up recommendations for abdominal aortic aneurysm surveillance per Society for Vascular Surgery Guidelines: < 2.5 cm No follow up necessary 2.52.9 cm Recommended ultrasound follow up every 10 years 3.0-3.9 cm Recommended ultrasound follow up every 3 years 4.0-4.9 cm Recommended ultrasound follow up every 12 months, vascularsurgery consult 5.0-5.4 cm Recommended ultrasound follow up every 6 months, vascularsurgery consult >= 5.5 cm Referral to vascular surgeon Based upon Society for Vascular Surgery Guidelines: J Vasc Surgery 2009Oct 50: s2s49; updated Sep 2017 J Vasc Surgery 67:277 THIS IS AN ELECTRONICALLY VERIFIED FINAL REPORT 09/02/2023 8:15 AM - Electronically signed by Kuldip Winn M.D. CH: MILDRED Report ID: [id number] Reading Location: [id number] us Cecilio LOW IMG US PROCEDURES Final Result * Hepatitis C antibody (09/14/2019 8:27 AM GENERAL HELPER) Hep C Ab TNP NONREACTIVE [facility] Comment: SPECIMEN SENT TO [facility] FOR TESTING Blood specimen (specimen) 09/14/2019 8:27 AM GENERAL HELPER 09/14/2019 8:59 AM GENERAL HELPER Narrative Resulting Agency Comment CLI Cecilio LOW LAB MICROBIOLOGY - GENERAL [place] ROSA Final Result [facility] [id number] [phone] from Last 3 Months or Most Recently Relevant to Health [place] [address] [facility] MEDICARE ADVANTAGE [facility] Address: [address] [address] [place] [address] IDPA [facility] MEDICARE ADV [facility] MEDICARE ADVANTAGE [facility] Address: [address] [address] [place] [address] Care Teams Nail Welter Relationship Specialty Start Date End Date Mindy Oseguera NP [address] [place] [address] PCP - General Family Medicine 01/16/25
--- OUTSIDE RECORDS SUMMARY | 2025-01-24 21:07 | XMS_ITS | Referral Summary ---
Author Organization [facility] Address [address] [place] [id number] Care Team Providers Care [employer] Re[employer]acer Name Role Phone Mindy Oseguera CEO AND PRESIDENT Primary Care Provider [phone] Encounters Date Type Department Care Team Description 01/16/2025 Results Follow-Up [facility] Primary [facility] [address] [place] [address] Mindy Oseguera, ANTOINE 01/04/2025 1:28 PM CDT - 01/04/2025 11:59 PM CDT Hospital Encounter [facility] [address] [place] [address] Nicotine dependence, cigarettes, in remission Discharge Disposition: Discharge to home or self care from Last 3 Months Allergies Active Allergy Reactions Criticality Noted Date Comments Atorvastatin Rash Medium 10/30/2019 Alendronate Unknown 10/19/2023 Medications aspirin 81 mg enteric coated tablet Take 1 tablet (81 mg total) by mouth daily Active vsweyfac-ibc-QF-lycopen -lutein 0.4-300-250 mg-mcg-mcg tabletIndications:Vitam in Deficiency Prevention 1 tablet Active solifenacin (VESIcare) 10 mg tablet Take 1 tablet (10 mg total) by mouth daily 90 tablet 3 023 Active Additional Information Patient not taking.Reported on 09/10/2024 calcium carbonate-vitamin D3 1,500 mg (600 mg elemental)-400 unit capsule Take 1 capsule by mouth daily 30 capsule 5 Active rosuvastatin (CRESTOR) 40 mg tabletIndications:Pure hypercholesterolemia Take 1 tablet (40 mg total) by mouth daily 2024 Active triamcinolone (KENALOG) 0.1 % cream Apply topically 2 (two) times a day 30 g 1 Active Active Problems Problem Noted Date Diagnosed Date Medicare annual wellness visit, subsequent 09/14 Assessment & Plan (09/14/2024 8:55 AM PRIMARY CARE MD): CBC, CMP, lipid panel, PSA ordered. Colonoscopy [...] 09/07/2023 Assessment & Plan (09/07/2023 11:44 AM PRIMARY CARE MD): Concerning, sending to derm Age-related osteoporosis wit hout current pathological fracture 09/07/2023 Assessment & Plan (09/14/2024 8:51 AM PRIMARY CARE MD): Chronic, controlled with daily Vitamin D and Calcium supplements. Patient was unable to tolerate bisphosphonate causes vomiting and muscle cramping. DEXA scan UTD repeat next year. Assessment & Plan (03/12/2024 6:44 AM CDT): Can not tolerate fosomax, will stay with calcium and vitamin D Assessment & Plan (10/19/2023 11:06 AM PRIMARY CARE MD): Can not tolerate fosomax, will stay with calcium and vitamin D Assessment & Plan (09/29/2023 12:37 PM PRIMARY CARE MD): Chronic, uncontrolled. Patient to discontinue Fosamax due to muscle cramping. Patient to begin daily calcium and vitamin D supplement. Patient to follow up with DEVANTE Carpenter in 3 weeks to discuss other treatment options for his osteoporosis. Assessment & Plan (09/07/2023 12:38 PM PRIMARY CARE MD): Educated, discussed options, elected to start Fosamax. 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 Follow up in 6 months. Assessment & Plan (01/02/2024 6:22 AM CDT): Continue D, add calcium Assessment & Plan (09/07/2023 12:33 PM PRIMARY CARE MD): Continue D, add calcium Assessment & Plan (06/02/2022 10:57 AM CDT): Continue vitamin-D Assessment & Plan (03/16/2021 11:19 AM CDT): Continue taking 5000 daily Assessment & Plan (09/10/2020 12:03 PM PRIMARY CARE MD): CPM Assessment & Plan (03/12/2020 11:35 AM CDT): CPM History of prostate cancer 02/01/2018 Assessment & Plan (09/10/2024 11:16 AM PRIMARY CARE MD): Diagnosed in 2014, underwent radiation treatment. Following with urology yearly. Assessment & Plan (01/02/2024 6:22 AM CDT): Stable with no issues Assessment & Plan (09/07/2023 12:33 PM PRIMARY CARE MD): Stable with no issues Assessment & Plan [...] 04/25/2017 Assessment & Plan (09/14/2024 8:52 AM PRIMARY CARE MD): Chronic, controlled with Crestor 40 mg daily. [...] routine. Assessment & Plan (10/19/2023 11:08 AM PRIMARY CARE MD): Patient is to continue present medications, work on diet and exercise as discussed, we did discuss the medications and potential side effects and signs and symptoms that would warrant calling office. Follow up routine. Assessment & Plan (09/07/2023 12:33 PM PRIMARY CARE MD): Patient is to continue present medications, work [...] routine. Assessment & Plan (09/10/2020 12:02 PM PRIMARY CARE MD): Diet and labs as ordered Assessment & Plan (03/12/2020 11:33 AM CDT): Very mild, OTC fish oil, diet and exercise, labs next visit PAD (peripheral artery disease) ([facility]) 2016 Assessment & Plan (09/14/2024 8:53 AM PRIMARY CARE MD): Chronic, stable. Patient to continue on Crestor 40 mg daily. Follow up in 6 months. Assessment & Plan (03/12/2024 6:44 AM CDT): This is stable and non-smoker Assessment & Plan (01/02/2024 6:22 AM CDT): This is stable and non-smoker Assessment & Plan (10/19/2023 11:05 AM PRIMARY CARE MD): This is stable and non-smoker Assessment & [...] follow Assessment & Plan (09/10/2020 12:02 PM PRIMARY CARE MD): Not an issue Assessment & Plan (03/12/2020 11:33 AM CDT): Currently not an issue, must stop smoking, I offered my assistance Acquired absence of left leg above knee 06/04/20 Assessment & Plan (09/14/2024 8:46 AM PRIMARY CARE MD): Patient has left lower leg prostatic, received 2 years ago. He ambulates with prostatic and a cane. Denies any recent falls. Follow up in 6 months. Assessment & Plan (03/12/2024 6:43 AM CDT): No current issues Assessment & Plan (01/02/2024 6:22 AM CDT): No current issues Assessment & Plan (10/19/2023 11:05 AM PRIMARY CARE MD): No current issues Assessment & Plan (09/07/2023 12:27 PM PRIMARY CARE MD): Stable with no issues Assessment & Plan [...] well Assessment & Plan (09/10/2020 12:02 PM PRIMARY CARE MD): Will follow Assessment & Plan (03/12/2020 11:32 AM CDT): Pending new prosthesis, no issues Enlarged prostate with lower urinary tract sympt oms (LUTS) 06/04/2016 Assessment & Plan (09/14/2024 8:52 AM PRIMARY CARE MD): Chronic, stable patient following with urology. No [...] 09/14/2024 Assessment & Plan (09/29/2023 12:36 PM PRIMARY CARE MD): Patient to discontinue Fosamax. Patient given Toradol [...] & Plan (02/05/2021 12:04 PM CDT): Continue qhqi-dcm-belxiun Robitussin and Mucinex medicines as ordered follow-up on Patient was doing better after I gave him a hand-held nebulizer Cellulitis of right lower extremity 03/12/2020 09/10/2024 Assessment & Plan (03/12/2020 11:35 AM CDT): This is new, medications as ordered, skin care, we did discuss s/s that would warrant further eval and treatment Smoker 10/03/2017 09/14/2024 Assessment & Plan (10/19/2023 11:05 AM PRIMARY CARE MD): Quit 3 months ago Assessment & Plan (09/07/2023 12:33 PM PRIMARY CARE MD): Encourage stopping Assessment & Plan (06/02/2022 10:56 [...] gum Assessment & Plan (09/10/2020 12:02 PM PRIMARY CARE MD): quit Assessment & Plan (03/12/2020 11:33 AM [...] 11:19 AM CDT): Patient's last CT in 2016 revealed stability for greater than 2 years no further follow-up was recommended Assessment & Plan (09/10/2020 12:03 PM PRIMARY CARE MD): 2 year stability, no furhter work up from CT 2017 Assessment & Plan (03/12/2020 11:34 AM CDT): 2 year stability in 2017, no further imaging Immunizations Immunization Administration Dates Next Due Influenza, [...] (Arexvy) 10/30/2023 Tdap 02/16/2022 ZOSTER Recombinant 08/14/2019,06/11/2019 Social History Tobacco Use Types Packs/Day Years [...] on file Legal Sex Male 1:01 PM PRIMARY CARE MD Gender Identity Not on file Sexual Orientation Not on file Last Filed Vital Signs Vital Sign Reading Time Taken Comments Blood Pressure 118/80 09/10/2024 10:59 AM PRIMARY CARE MD Pulse 72 09/10/2024 10:59 AM PRIMARY CARE MD Temperature 36.1 C (97 F) 09/10/2024 10:59 AM PRIMARY CARE MD Respiratory Rate 16 09/10/2024 10:59 AM PRIMARY CARE MD Oxygen Saturation 95% 09/10/2024 10:59 AM PRIMARY CARE MD Inhaled Oxygen Concentration - - Weight 94.5 kg (208 lb 6.4 oz) 09/10/2024 10:59 AM PRIMARY CARE MD Height 185.4 cm (6' 1 ) 09/10/2024 10:59 AM PRIMARY CARE MD Body Mass Index 27.5 09/10/2024 10:59 AM PRIMARY CARE MD Plan of Treatment Not on file Procedures Procedure Name Priority Date/Time Associated Diagnosis Comments CT LUNG CANCER SCREENING Schedule Routine, Read Routine (OP Routine) 01/04/2025 1:38 PM CDT Nicotine dependence, cigarettes, in remission PSA SCREEN Routine 09/10/2024 11:55 AM PRIMARY CARE MD History of prostate cancer COLONOSCOPY 10/10/2023 9:51 AM PRIMARY CARE MD US ABDOMINAL AORTIC ANEURYSM SCREENING Schedule Routine, Read Routine (OP Routine) 09/01/2023 10:00 AM PRIMARY CARE MD Screening for AAA (abdominal aortic aneurysm) HEPATITIS C ANTIBODY Routine 09/14/2019 8:27 AM PRIMARY CARE MD Need for hepatitis C screening test from [...] Edward Resendez D.O. PS: PS Report ID: [id number] Reading Location: [place] [address] Procedure Note Edward Resendez, - 01/15/2025 EXAM [...] Edward Resendez D.O. PS: PS Report ID: [id number] Reading Location: [place] [address] us Mindy Oseguera CEO AND PRESIDENT IMG CT PROCEDURES Final Result * PSA screen (09/10/2024 11:55 AM PRIMARY CARE MD) PSA-Total 0.68 <=6.20 ng/mL Comment: Interpretive Data [...] data last revised 22. Testing performed by: [facility], [address] [place] [address]., [id number] Blood 09/10/2024 11:5 5 AM PRIMARY CARE MD 09/10/2024 1:00 PM PRIMARY CARE MD us Mindy Oseguera NP LAB BLOOD ORDERABLES Final Res ult [id number] [id number] [facility] Department [place] [address] * COLONOSCOPY (10/10/2023 9:51 AM PRIMARY CARE MD) Anatomical Region Laterality Modality Other Narrative Procedure Note Jass Godfrey MD - 10/10/2023 9:51 AM CST [facility] END[facility] Patient Name: Onel Flynn Procedure Date: 10/10/2023 9:51 AM Date of : 1950 Admit Type: Outpatient Age: 73 Gender: Male Attending MD: Jass Godfrey M.D. Room: [facility] ENDOSCOPY ROOM 05 Note Status: Finalized [...] The scope was passed under direct vision.The CF-[id number] colonoscope was introduced through theanus and advanced [...] On: 10/10/2023 9:51 AM Recognized by the [employer] for promoting quality in endoscopy Jass Godfrey MD ENDOSCOPY PROCEDURES Fin al Result * US Abdominal Aortic Aneurysm Screening (09/01/2023 10:00 AM PRIMARY CARE MD) Anatomical Region Laterality Modality Abdomen Ultrasound 09/02/2023 8:14 AM PRIMARY CARE MD Narrative 09/02/2023 8:15 AM PRIMARY CARE MD EXAM DESCRIPTION: US ABDOMINAL AORTIC ANEURYSM SCREENING [...] Kuldip Winn M.D. CH: MILDRED Report ID: [id number] Reading Location: [id number] Procedure Note Kuldip Winn Jr., MD - [...] Electronically signed by Kuldip Winn M.D. CH: Report ID: [id number] Reading Location: [id number] Cecilio LOW IMG US PROCEDURES Final Result * Hepatitis C antibody (09/14/2019 8:27 AM PRIMARY CARE MD) Hep C Ab TNP NONREACTIVE [facility] Comment: SPECIMEN SENT TO [facility] FOR TESTING Blood specimen (specimen) 09/14/2019 8:27 AM PRIMARY CARE MD 09/14/2019 8:59 AM PRIMARY CARE MD Narrative Resulting Agency Comment CLI Cecilio LOW LAB MICROBIOLOGY - GENERAL [place] Final Result [facility] [address] [place] [address], [facility] [phone] from Last 3 Months or Most Recently Relevant to Health Maintenance Insurance [employer] [facility] [id number] CIGNA MEDICARE ADV UHC MEDICARE ADVANTAGE Care Teams [address] Glass[employer]pl[employer] Relationship Specialty Start Date End Date Mindy Oseguera NP [address] [place] [id number] PCP - General Family Medicine 01/16/25
--- OUTSIDE RECORDS SUMMARY | 2025-01-24 21:07 | XMS_ITS | Encounter Summary ---
Author Organization [facility] Facility Care Team Providers Care [employer] Engineering Name Role Phone Cecilio Carpenter Primary Care Provider [phone] Mindy Oseguera TRADE [employer]ION OFFICIAL Primary Care Provider Cecilio Carpenter Primary Care Provider [phone] Mindy Oseguera [employer] OFFICIAL Primary Care Provider [phone] Encounter Details Date Type Department Care Team (Latest Contact Info) Description 07/19/2016 Orders Only [facility] CLINCONV Provider, MD [facility] [address] [place] [id number] Social History Tobacco Use Types Packs/Day Years Used Date Smoking Tobacco: Never Assessed Sex and Gender Information Value Date Recorded Sex Assigned at Not on file Legal Sex Male 1:01 PM [employer]LLOW[employer] Gender Identity Not on file Sexual Orientation Not on file documented as of this encounter Plan of Treatment Not on file documented as of this encounter Procedures Procedure Name Priority Date/Time Associated Diagnosis Comments PROCEDURE - RESULT 07/20/2016 12 :00 AM CDT documented in this encounter Results * PROCEDURE - RESULT (07/20/2016 12:00 AM CDT) Narrative 07/20/2016 12:00 AM CDT Ordered by an unspecified provider. us Historical Provider Final Res ult documented in this encounter Visit Diagnoses Not on filedocumented in this encounter Care Teams [employer] Relationship Specialty Start Date End Date Cecilio Carpenter PA PCP - General Family Medicine 08/20/19 07/30/24 Mindy Oseguera [employer] OFFICIAL [address] [place] [phone] PCP - General Family Medicine 07/31/24 12/18/24 Cecilio Carpenter PA [address] [place] [phone] PCP - General Family Medicine 12/19/24 01/15/25 Mindy Oseguera, TRADE [employer]ION OFFICIAL [address] [place] [phone] PCP - General Family Medicine 01/16/25 documented as of this encounter
--- OUTSIDE RECORDS SUMMARY | 2025-01-24 21:07 | XMS_ITS | Clinical Summary ---
Author Organization [facility] Address [address] [place] [address] Phone Care Team Providers Care High [employer] Counselor Name Role Phone Lulu Khanna MD Primary Care Provider Social History Tobacco Use Types Packs/Day Years Used Date Smoking Tobacco: Never Assessed Sex and Gender Information Value Date Recorded Sex Assigned at Not on file Legal Sex Male 9:34 AM [employer] Gender Identity Not on file Sexual Orientation Not on file Plan of Treatment Health Maintenance Due Date Last Done Comments DTAP/TDAP/TD VACCINES (1 - Tdap) 1969 COLORECTAL SCREENING 1995 Colorectal Cancer Screening 1995 FIT-DNA Q 3 years 1995 FIT/FOBT Q 1 year 1995 Flex Sig/CT Colonography Q 5 years 1995 PNEUMOCOCCAL VACCINE 50+ YEARS (1 of 1 - PCV) 02/27/20 00 ZOSTER VACCINE (1 of 2) 02/27/2000 INFLUENZA VACCINE (#1) 2024 RSV VACCINE (60+ or ) (1 - 1-dose 75+ series) 2025 Care Teams High School Counselor Relationship Specialty Start Date End Date Lulu Khanna MD [address] [place] [phone] PCP - General Family Practice 09/07/17
--- OUTSIDE RECORDS SUMMARY | 2025-01-24 21:07 | XMS_ITS | Continuity of Care Document ---
Author Organization [employer] [facility] [place] Address [address] [place] [address] [address] [place] [address] Phone Care Team Providers Care Property Staff Accountant Name Role Phone Olimpia Eliseo RAE Unavailable Unavailable Procedures Procedure Date Therapeutic Activities Neuromuscular Re-Ed Therapeutic Exercise Therapeutic Activities Neuromuscular Re-Ed Therapeutic Exercise Therapeutic Activities Neuromuscular Re-Ed Therapeutic Exercise Therapeutic Activities Therapeutic Exercise Neuromuscular Re-Ed Therapeutic Activities Neuromuscular Re-Ed Therapeutic Exercise Therapeutic Activities Neuromuscular Re-Ed Therapeutic Exercise Therapeutic Activities Neuromuscular Re-Ed Therapeutic Exercise Therapeutic Activities Neuromuscular Re-Ed Therapeutic Exercise Therapeutic Activities Neuromuscular Re-Ed Therapeutic Activities Neuromuscular Re-Ed Therapeutic Activities Neuromuscular Re-Ed Therapeutic Activities Neuromuscular Re-Ed Therapeutic Activities Neuromuscular Re-Ed Therapeutic Exercise Therapeutic Activities Neuromuscular Re-Ed Therapeutic Exercise Hot or Cold Pack Doc neg elder mal no plan PT Evaluation Moderate Complexity Neuromuscular Re-Ed Therapeutic Exercise WORK COND/WORK HARD RE EVAL WORK CONDITIONING INITIAL 2 HOURS Hot or Cold Pack Electrical Stimulation Work Conditioning Initial 2 hrs 017 Work Conditioning add 1 hr Work Conditioning Initial 2 hrs 017 Work Conditioning add 1 hr Hot or Cold Pack Electrical Stimulation Work Conditioning Initial 2 hrs 017 Work Conditioning add 1 hr Work Conditioning Initial 2 hrs 017 Work Conditioning add 1 hr Work Conditioning Initial 2 hrs 017 Work Conditioning add 1 hr Hot or Cold Pack Electrical Stimulation Work Conditioning Initial 2 hrs 017 Work Conditioning add 1 hr Work Conditioning Initial 2 hrs 017 Work Conditioning add 1 hr Work Conditioning Initial 2 hrs 017 Work Conditioning add 1 hr Work Conditioning Initial 2 hrs - 017 Work Conditioning add 1 hr Work Conditioning Initial 2 hrs 017 Work Conditioning add 1 hr Work Conditioning Initial 2 hrs 017 Work Conditioning add 1 hr Work Conditioning Initial 2 hrs 017 Work Conditioning add 1 hr Hot or Cold Pack Electrical Stimulation Work Conditioning Initial 2 hrs 017 Work Conditioning add 1 hr Work Conditioning Initial 2 hrs 017 Work Conditioning add 1 hr Work Cond Initial Report WORK CONDITIONING INITIAL 2 HOURS Therapeutic Exercise Therapeutic Activities Neuromuscular Re-Ed Hot or Cold Pack Electrical Stimulation Therapeutic Exercise Therapeutic Activities Neuromuscular Re-Ed Hot or Cold Pack Electrical Stimulation Therapeutic Exercise Therapeutic Activities Neuromuscular Re-Ed Manual Therapy Hot or Cold Pack Electrical Stimulation Therapeutic Exercise Therapeutic Activities Manual Therapy Hot or Cold Pack Electrical Stimulation Gait Training Therapeutic Exercise Therapeutic Activities Neuromuscular Re-Ed Manual Therapy Hot or Cold Pack Electrical Stimulation Therapeutic Exercise Therapeutic Activities Neuromuscular Re-Ed Manual Therapy Hot or Cold Pack Electrical Stimulation Therapeutic Exercise Neuromuscular Re-Ed Manual Therapy Hot or Cold Pack Electrical Stimulation Therapeutic Exercise Therapeutic Activities Neuromuscular Re-Ed Manual Therapy Hot or Cold Pack Electrical Stimulation Progress Note Therapeutic Exercise Therapeutic Activities Neuromuscular Re-Ed Manual Therapy Hot or Cold Pack Electrical Stimulation Therapeutic Exercise Therapeutic Activities Neuromuscular Re-Ed Manual Therapy Hot or Cold Pack Electrical Stimulation Therapeutic Exercise Therapeutic Activities Neuromuscular Re-Ed Manual Therapy Hot or Cold Pack Electrical Stimulation Therapeutic Exercise Therapeutic Activities Neuromuscular Re-Ed Manual Therapy Hot or Cold Pack Electrical Stimulation Therapeutic Exercise Therapeutic Activities Neuromuscular Re-Ed Manual Therapy Hot or Cold Pack Electrical Stimulation Therapeutic Exercise THERAPEUTIC ACTIVITIES Neuromuscular Re-Ed MANUAL THERAPY Hot or Cold Pack ELECTRICAL STIMULATION Therapeutic Exercise THERAPEUTIC ACTIVITIES Neuromuscular Re-Ed MANUAL THERAPY Hot or Cold Pack ELECTRICAL STIMULATION Therapeutic Exercise THERAPEUTIC ACTIVITIES Neuromuscular Re-Ed MANUAL THERAPY Hot or Cold Pack ELECTRICAL STIMULATION Therapeutic Exercise THERAPEUTIC ACTIVITIES Neuromuscular Re-Ed MANUAL THERAPY Hot or Cold Pack ELECTRICAL STIMULATION Therapeutic Exercise THERAPEUTIC ACTIVITIES Neuromuscular Re-Ed MANUAL THERAPY Hot or Cold Pack ELECTRICAL STIMULATION THERAPEUTIC EXERCISES NEUROMUSCULAR RE-ED MANUAL THERAPY FUNC ACTIVITY HOT/COLD PACK ELECTRIC STIMULATION UNATT THERAPEUTIC EXERCISES MANUAL THERAPY FUNC ACTIVITY HOT/COLD PACK ELECTRIC STIMULATION UNATT THERAPEUTIC EXERCISES NEUROMUSCULAR RE-ED MANUAL THERAPY FUNC ACTIVITY HOT/COLD PACK THERAPEUTIC EXERCISES NEUROMUSCULAR RE-ED MANUAL THERAPY FUNC ACTIVITY HOT/COLD PACK THERAPEUTIC EXERCISES NEUROMUSCULAR RE-ED MANUAL THERAPY FUNC ACTIVITY HOT/COLD PACK THERAPEUTIC EXERCISES NEUROMUSCULAR RE-ED MANUAL THERAPY FUNC ACTIVITY HOT/COLD PACK THERAPEUTIC EXERCISES MANUAL THERAPY FUNC ACTIVITY HOT/COLD PACK ELECTRIC STIMULATION UNATT THERAPEUTIC EXERCISES MANUAL THERAPY FUNC ACTIVITY HOT/COLD PACK ELECTRIC STIMULATION UNATT THERAPEUTIC EXERCISES MANUAL THERAPY FUNC ACTIVITY HOT/COLD PACK ELECTRIC STIMULATION UNATT THERAPEUTIC EXERCISES MANUAL THERAPY FUNC ACTIVITY HOT/COLD PACK ELECTRIC STIMULATION UNATT THERAPEUTIC EXERCISES MANUAL THERAPY FUNC ACTIVITY THERAPEUTIC EXERCISES MANUAL THERAPY FUNC ACTIVITY HOT/COLD PACK ELECTRIC STIMULATION UNATT THERAPEUTIC EXERCISES MANUAL THERAPY FUNC ACTIVITY HOT/COLD PACK ELECTRIC STIMULATION UNATT Progress Note THERAPEUTIC EXERCISES MANUAL THERAPY FUNC ACTIVITY HOT/COLD PACK ELECTRIC STIMULATION UNATT THERAPEUTIC EXERCISES MANUAL THERAPY FUNC ACTIVITY HOT/COLD PACK ELECTRIC STIMULATION UNATT THERAPEUTIC EXERCISES MANUAL THERAPY FUNC ACTIVITY HOT/COLD PACK ELECTRIC STIMULATION UNATT THERAPEUTIC EXERCISES MANUAL THERAPY FUNC ACTIVITY HOT/COLD PACK ELECTRIC STIMULATION UNATT THERAPEUTIC EXERCISES MANUAL THERAPY FUNC ACTIVITY HOT/COLD PACK ELECTRIC STIMULATION UNATT THERAPEUTIC EXERCISES MANUAL THERAPY FUNC ACTIVITY HOT/COLD PACK ELECTRIC STIMULATION UNATT THERAPEUTIC EXERCISES MANUAL THERAPY FUNC ACTIVITY HOT/COLD PACK ELECTRIC STIMULATION UNATT THERAPEUTIC EXERCISES MANUAL THERAPY FUNC ACTIVITY HOT/COLD PACK ELECTRIC STIMULATION UNATT THERAPEUTIC EXERCISES MANUAL THERAPY FUNC ACTIVITY HOT/COLD PACK ELECTRIC STIMULATION UNATT THERAPEUTIC EXERCISES MANUAL THERAPY FUNC ACTIVITY HOT/COLD PACK ELECTRIC STIMULATION UNATT THERAPEUTIC EXERCISES MANUAL THERAPY FUNC ACTIVITY HOT/COLD PACK ELECTRIC STIMULATION UNATT THERAPEUTIC EXERCISES MANUAL THERAPY HOT/COLD PACK ELECTRIC STIMULATION UNATT THERAPEUTIC EXERCISES MANUAL THERAPY GAIT TRAINING 15 MIN HOT/COLD PACK ELECTRIC STIMULATION UNATT PT Evaluation Moderate Complexity THERAPEUTIC EXERCISES NEUROMUSCULAR RE-ED Advance Directives Directive Yes / No Effective Date File Name No Information Encounters Encounter Description Practice Location Reason(s) For Visit Diagnoses Date Provider Providers Copied on Encounter [facility] [place], [address], [id number], [place] tel:[phone] [place] No Information 3 Olimpia Barros [address] [facility], [address], [place], [address], [place]. tel:[phone] Referring Provider: Cecilio Carpenter, [address], [place], [address]. tel:[phone], [place], [place], [id number], [place] tel:[phone] [place] No Information Dec-0 5 3 Muehl Eliseo. [address] [place] [address], [address], [place], [facility], . tel:[phone] Referring Provider: Cecilio Carpenter, [address], [place], [address]. tel:[phone], [place], [place], [id number], [place] tel:[phone] [place] No Information Jul-3 0- 3 Muehl Eliseo. [address] [place] [address], [address], [place], [facility], . tel:[phone] Referring Provider: Cecilio Carpenter, [address], [place], [address]. tel:[phone] [address], [place], [place], [id number], [place] tel:[phone] [place] No Information Jul-2 3 Muehl Eliseo. [address] [place] [address], [address], [place], [facility], [place]. tel:[phone] Referring Provider: Cecilio Carpenter, [address], [place], [address]. tel:[phone], [place], [place], [id number], [place] tel:[phone] [place] No Information Jul-2 3 Muehl Eliseo. [address] [place] [address], [address], [place], [facility], [place]. tel:[phone] Referring Provider: Cecilio Carpenter, [address], [place], [address]. tel:[phone], [place], [place], [id number], tel:[phone] [place] No Information Jul-2 3 Muehl Eliseo. [address] [place] [address], [address], [place], [facility], [place]. tel:[phone] Referring Provider: Cecilio Carpenter, [address], [place], [address]. tel:[phone], [place], [place], [id number], tel:[phone] [place] No Information Nov-1 3 Muehl Eliseo. [address] [place] [address], [address], [place], [facility], [place]. tel:[phone] Referring Provider: Cecilio Carpenter, [facility] [address], [place], [address]. tel:[phone], [place], [place], [id number], tel:[phone] [place] No Information 3 Muehl Eliseo. [address] [place] [address], [address], [place], [facility], [place]. tel:[phone] Referring Provider: Cecilio Carpenter, [address], [place], [address]. tel:[phone] [address], [place], [place], [address], tel:[phone] [place] No Information 0 3 Muehl Eliseo. [address] [place] [address], [address], [place], [facility], [place]. tel:[phone] Referring Provider: Cecilio Carpenter, [address] [facility] [address], [place], [address]. tel:[phone] [address], [place], [place], [address], tel:[phone] [place] No Information Nov-0 3 Muehl Eliseo. [address] [place] [address], [address], [place], [facility], [place]. tel:[phone] Referring Provider: Cecilio Carpenter, [address], [place], [address]. tel:[phone] [address], [place], [place], [address], tel:[phone] [place] No Information Nov-0 2-202 3 Muehl Eliseo. [address] [place] [address], [address], [place], [facility], [place]. tel:[phone] Referring Provider: Cecilio Carpenter, [address], [place], [address]. tel:[phone] [address], [place], [place], [address], tel:[phone] [place] No Information Jun-3 1- 3 Muehl Eliseo. [address] [place] [address], [address], [place], [facility], [place]. tel:[phone] Referring Provider: Cecilio Carpenter, [address], [place], [address]. tel:[phone] [address], [place], [place], [address], [place] tel:[phone] [place] No Information Jun-2 6-202 3 Muehl Eliseo. [address] [place] [address], [address], [place], [facility], [place]. tel:[phone] Referring Provider: Cecilio Carpenter, [address], [place], [address]. tel:[phone] [address], [place], [place], [address], [place] tel:[phone] [place] No Information Oct-2 4-202 3 Muehl Eliseo. [address] [place] [address], [address], [place], [facility], . tel:[phone] Referring Provider: Cecilio Carpenter, [address], [place], [address]. tel:[phone] [facility] [address], [place], [place], [id number], [place] tel:[phone] [place] No Information 3 Olimpia Gomes. [address] [place] [address], [address], [facility], . tel:[phone] Referring Provider: Cecilio Carpenter, [address] [address], [place], [address]. tel:[phone] [facility] [address], [place], [place], [address], [place] tel:[phone] [place] No Information 0- 7 Arnold Marc. [address] [place] [address], [facility], . [phone] Referring Provider: Louie Spence, [place], [address]. tel:[phone], [place], [place], [address], [place] tel:[phone] [place] No Information - 7 Thuet Jens. [address] [place] [address], [address], [facility], . tel:[phone] Referring Provider: Louie Spence, [place], [address]. tel:[phone] [facility] [address], [place], [place], [address], [place] tel:[phone] [place] No Information 0 5- 7 Thuet Jens. [address] [place] [address], [address], [facility], . tel:[phone] Referring Provider: Louie Spence, [place], [address]. tel:[phone] [facility] [address], [place], [place], [address], tel:[phone] [place] No Information Jame-0 3-201 7 Thuet Jens. [address] [place] [address], [address], [facility], . tel:[phone] Referring Provider: [place], [address]. tel:[phone] [address], [place], [place], [address], tel:[phone] [place] No Information Marek-3 0-201 7 Muehl Karina. [address] [place] [address], [address], [facility], . tel:[phone] Referring Provider: [place], [address]. tel:[phone] [address] [facility], [place], [place], [address], tel:[phone] [place] No Information Marek-2 8-201 7 Thuet Jens. [address] [place] [address], [address], [facility], . tel:[phone] Referring Provider: [place], [address]. tel:[phone] [facility] [address] [facility] [facility], [place], [place], [address], tel:[phone] [place] No Information Marek-2 6-201 7 Thuet Jens. [address] [place] [address], [address], [facility], . tel:[phone] Referring Provider: [place], [address]. tel:[phone] [facility] [facility] [address], [place], [place], [address], tel:[phone] [place] No Information Marek-2 3-201 7 Thuet Jens. [address] [place] [address], [address], [place], [address], [place]. tel:[phone] Referring Provider: [place], [address]. tel:[phone] [facility] [address], [place], [place], [address], [place] tel:[phone] [place] No Information 7 Thuet Jens. [address] [place] [address], [address], [place], [address], [place]. tel:[phone] Referring Provider: [place], [address]. tel:[phone] [facility] [address], [place], [place], [address], [place] tel:[phone] [place] No Information 7 Threlkeld Demi. . Referring Provider: [place], [address]. tel:[phone] [facility] [address], [place], [place], [address], [place] tel:[phone] [place] No Information 7 Thuet Jens. [address] [place] [address], [address], [place], [address], [place]. tel:[phone] Referring Provider: [place], [address]. tel:[phone] [facility] [address], [place], [place], [address], [place] tel:[phone] [place] No Information 7 Thuet Jens. [address] [place] [address], [address], [place], [address], [place]. tel:[phone] Referring Provider: [place], [address]. tel:[phone] [facility] [address], [place], [place], [address], [place] tel:[phone] [place] No Information Marek-1 2-201 7 Thuet Jens. [address] [place] [address], [address], [facility], . tel:[phone] Referring Provider: [place], [address]. tel:[phone] [facility] [address], [place], [place], [address], [place] tel:[phone] [place] No Information Marek-0 9-201 7 Thuet Jens. [address] [place] [address], [address], [facility], . tel:[phone] Referring Provider: [place], [address]. tel:[phone] [facility] [address], [place], [place], [address], [place] tel:[phone] [place] No Information Marek-0 7-201 7 Thuet Jens. [address] [place] [address], [address], [facility], . tel:[phone] Referring Provider: [place], [address]. tel:[phone] [facility] [address], [place], [place], [address], [place] tel:[phone] [place] No Information Marek-0 5-201 7 Arnold Marc. [address] [place] [address], . tel:[phone] Referring Provider: [place], [address]. tel:[phone] [facility], [place], [place], [address], [place] tel:[phone] [place] No Information Marek-0 2-201 7 Muehl Eliseo. [address] [place] [address], [address], [place], [facility], . tel:[phone] Referring Provider: [place], [address]. tel:[phone] [address], [place], [place], [address], tel:[phone] [place] No Information May-3 1-201 7 Muehl Eliseo. [address] [place] [address], [address], [place], [facility], [place]. tel:[phone] Referring Provider: [place], [address]. tel:[phone], [id number], tel:[phone] [place] No Information January-2 6-201 7 Muehl Eliseo. [address] [place] [address], [address], [place], [facility], . tel:[phone] Referring Provider: [place], [address]. tel:[phone], [id number], tel:[phone] [place] No Information May-2 4-201 7 Muehl Eliseo. [address] [place] [address], [address], [place], [facility], [place]. tel:[phone] Referring Provider: [place], [address]. tel:[phone] [address], [place], [place], [address], tel:[phone] [place] No Information May-2 2-201 7 Muehl Eliseo. [address] [place] [address], [address] [place] [address], [facility], . tel:[phone] Referring Provider: [place], [address]. tel:[phone] [address] [facility], [place], [place], [address], tel:[phone] [place] No Information 9-201 7 Muehl Eliseo. [address] [place] [address], [address], [place], [facility], . tel:[phone] Referring Provider: [place], [address]. tel:[phone] [place] [address], [id number], tel:[phone] [place] No Information -201 7 Muehl Eliseo. [address] [place] [address], [facility] [address], [place], [facility], . tel:[phone] Referring Provider: [place], [address]. tel:[phone] [address] [place] [address], [id number], [place] tel:[phone] [place] No Information 5-201 7 Muehl Eliseo. [address] [place] [address], [address], [place], [facility], . tel:[phone] Referring Provider: [place], [address]. tel:[phone] [address], [place], [address], [place] tel:[phone] [place] No Information 2-201 7 Muehl Eliseo. [address] [place] [address], [address], [place], [facility], . tel:[phone] Referring Provider: [place], [address]. tel:[phone] [address], [place], [place], [address], tel:[phone] [place] No Information May-1 0-201 7 Muehl Eliseo. [address] [place] [address], [address], [facility], . tel:[phone] Referring Provider: [place], [address]. tel:[phone], [place], [place], [address], tel:[phone] [place] No Information May-0 8-201 7 Muehl Eliseo. [address] [place] [address], [address] [address], . tel:[phone] Referring Provider: [place], [address]. tel:[phone] [address], [place], [place], [address], [place] tel:[phone] [place] No Information May-0 5-201 7 Muehl Eliseo. [address] [place] [address], [address], [facility], . tel:[phone] Referring Provider: [place], [address]. tel:[phone] [facility] [address] [place], [place] [address], [place], [place], [id number], [place] tel:[phone] [place] No Information May-0 3-201 7 Muehl Eliseo. [address] [place] [address], [address] [address], . tel:[phone] Referring Provider: [place], [address]. tel:[phone] [address], [place], [place], [address], [place] tel:[phone] [place] No Information May-0 1-201 7 Muehl Eliseo. [address] [facility], [address], [place], [facility], . tel:[phone] Referring Provider: [place], [address]. tel:[phone] [address] [address] [facility], [place], [place], [address], tel:[phone] [place] No Information Dec-2 8-201 7 Muehl Eliseo. [address] [place] [address], [address], [place], [facility], [place]. tel:[phone] Referring Provider: Louie Spence, [place], [address]. tel:[phone] [address], [place], [address], [place] tel:[phone] [place] No Information Dec-2 6-201 7 Muehl Eliseo. [address] [place] [address], [address], [place], [facility], [place]. tel:[phone] Referring Provider: [place], [address]. tel:[phone] [address], [place], [place], [address], [place] tel:[phone] [place] No Information Dec-2 5-201 7 Muehl Eliseo. [address] [place] [address], [address], [place], [facility], [place]. tel:[phone] Referring Provider: [place], [address]. tel:[phone] [facility] [address] [facility], [place], [place], [address], [place] tel:[phone] [place] No Information Dec-2 1-201 7 Muehl Eliseo. [address] [place] [address], [address], [place], [facility], [place]. tel:[phone] Referring Provider: [place], [address]. tel:[phone] [address], [place], [place], [address], tel:[phone] [place] No Information 7 Muehl Eliseo. [address] [place] [address], [address], [place], [place], [facility], . tel:[phone] Referring Provider: Louie Spence, [place], [address]. tel:[phone] [address], [place], [place], [id number], [place] tel:[phone] [place] No Information 7 Muehl Eliseo. [address] [place] [address], [address], [place], [place], [facility], . tel:[phone] Referring Provider: Louie Spence, [place], [address]. tel:[phone] [address], [place], [place], [id number], [place] tel:[phone] [place] No Information 7 Muehl Eliseo. [address] [place] [address], [address], [place], [place], [facility], . tel:[phone] Referring Provider: [place], [address]. tel:[phone] [address], [place], [place], [id number], [place] tel:[phone] [place] No Information 7 Muehl Eliseo. [address] [place] [address], [address], [place], [place], [facility], [place]. tel:[phone] Referring Provider: Louie Spence, [place], [address]. tel:[phone] [facility] [address], [place], [place], [id number], tel:[phone] [place] No Information Apr-1 0-201 7 Muehl Eliseo. [address] [place] [address], [address], [place], [facility], . tel:[phone] Referring Provider: [place], [address]. tel:[phone], [place], [place], [id number], tel:[phone] [place] No Information Apr-0 7-201 7 Muehl Eliseo. [address] [place] [address], [address], [place], [facility], . tel:[phone] Referring Provider: [place], [address]. tel:[phone] [facility] [address] [place], [place] [address], [place], [id number], [place] tel:[phone] [place] No Information Apr-0 5-201 7 Muehl Eliseo. [address] [place] [address], [address], [place], [facility], . tel:[phone] Referring Provider: [place], [address]. tel:[phone] [facility] [address] [place], [place] [address], [place], [place], [id number], [place] tel:[phone] [place] No Information Apr-0 3-201 7 Muehl Eliseo. [address] [place] [address], [address] [address], . tel:[phone] Referring Provider: [place], [address]. tel:[phone] [facility] [address] [place], [place] [address], [place], [place], [id number], tel:[phone] [place] No Information Mar-3 1-201 7 Muehl Eliseo. [address] [place] [address], [address], [place], [facility], [place]. tel:[phone] Referring Provider: [place], [address]. tel:[phone] [address], [place], [place], [address], [place] tel:[phone] [place] No Information Mar-2 7-201 7 Muehl Eliseo. [address] [place] [address], [address], [place], [facility], [place]. tel:[phone] Referring Provider: [place], [address]. tel:[phone] [place] [address], [place], [id number], [place] tel:[phone] [place] No Information Mar-2 4-201 7 Muehl Eliseo. [address] [place] [address], [address], [place], [facility], [place]. tel:[phone] Referring Provider: [place], [address]. tel:[phone], [place], [id number], [place] tel:[phone] [place] No Information Mar-2 2-201 7 Muehl Eliseo. [address] [place] [address], [address], [place], [facility], [place]. tel:[phone] Referring Provider: [place], [address]. tel:[phone], [place], [place], [id number], [place] tel:[phone] [place] No Information Mar-2 0-201 7 Muehl Eliseo. [address] [place] [address], [address], [place], [facility], [place]. tel:[phone] Referring Provider: [place], [address]. tel:[phone], [place], [place], [id number], tel:[phone] [place] No Information Mar-1 7-201 7 Muehl Eliseo. [address] [place] [address], [address], [place], [facility], . tel:[phone] Referring Provider: [place], [address]. tel:[phone], [place], [place], [id number], [place] tel:[phone] [place] No Information Mar-1 5-201 7 Muehl Eliseo. [address] [place] [address], [address], [place], [facility], . tel:[phone] Referring Provider: Louie Spence, [place], [address]. tel:[phone], [place], [id number], [place] tel:[phone] [place] No Information Mar-1 3-201 7 Muehl Eliseo. [address] [place] [address], [address], [place], [facility], . tel:[phone] Referring Provider: [place], [address]. tel:[phone], [place], [place], [id number], [place] tel:[phone] [place] No Information Mar-1 0-201 7 Muehl Karina. [address] [place] [address], [address], [place], [facility], . tel:[phone] Referring Provider: [place], [address]. tel:[phone] [facility] [address] [facility], [place], [id number], [place] tel:[phone] [place] No Information Mar-0 8-201 7 Erika Clemente . Referring Provider: [place], [address]. tel: [facility] [address] [place] [address], [place], [place], [id number], [place] tel:[phone] [place] No Information Mar-0 6-201 7 Muehl Eliseo. [address] [place] [address], [address], [place], [facility], . tel:[phone] Referring Provider: Louie Spence, [place], [address]. tel:[phone] [facility] [address], [id number], tel:[phone] [place] No Information Mar-0 3-201 7 Muehl Eliseo. [address] [place] [address], [address], [facility], . tel:[phone] Referring Provider: Louie Spence, [place], [address]. tel:[phone] [facility] [address], [id number], [place] tel:[phone] [place] No Information Mar-0 1-201 7 Muehl Eliseo. [address] [place] [address], [address], [place], [facility], [place]. tel:[phone] Referring Provider: [place], [address]. tel:[phone] [facility] [facility], [place], [place], [id number], tel:[phone] [place] No Information Feb-2 7-201 7 Muehl Eliseo. [address] [place] [address], [address], [place], [facility], . tel:[phone] Referring Provider: [place], [address]. tel:[phone] [address] [facility], [place], [place], [id number], tel:[phone] [place] No Information b- 4 7 Muehl Eliseo. [address] [place] [address], [address], [place], [facility], . tel:[phone] Referring Provider: [place], [address]. tel:[phone] [place] [address], [place], [place], [id number], tel:[phone] [place] No Information b- 2 7 Muehl Eliseo. [address] [place] [address], [place], [facility], . tel:[phone] Referring Provider: [place], [address]. tel:[phone], [id number], [place] tel:[phone] [place] No Information b- 0-201 7 Erika Clemente . Referring Provider: [place], [address]. tel:[phone] [address], [place], [place], [address], [place] tel:[phone] [place] No Information Oct- 7- 7 Muehl Eliseo. [address] [place] [address], [address], [place], [facility], . tel:[phone] Referring Provider: [place], [address]. tel:[phone], [place], [place], [address], [place] tel:[phone] [place] Pain in right kneeMuscle weakness (generalized) Unspecified abnormalities of gait and mobilityStiff ness of right knee, not elsewhere classifiedEff usion, right kneeStrain of right quadriceps muscle, fascia and tendon, subs Feb-201 7 Olimpia Gomes. [address] [facility], [address], [place], [address], [place]. tel:[phone] Referring Provider: Maico Chu, [address], [place], [address]. tel:[phone] Family History Family Member Type Diagnosis Age At Onset No Information Payers Payer name Insurance type Covered constitution party ID Authoriza tichristo(s) [employer] Medicare Replacement 16 [id number] Medicaid OON Write Off CI 00 Social History Type Description Quantity Date Captured Comments Sex Male Smoking Status No Information Chief Complaint And Reason For Visit No Information Reason For Referral Reason For Referral No Information Plan Of Treatment Date Type Action Status Goal Tobacco cessation counseling completed Goal Tobacco Cessation Counseling completed Referral Ordered: Depression: Depression management program timeframe: 1 Day. (related to Depression) ordered Referral Ordered: Clinical Psychology (related to Depression) ordered Referral Ordered: Referrals: Specialist. Evaluate and Treat (related to Adjustment disorder with depressed mood) ordered History Of Present Illness Encounter Date Complaint History Of Prese nt Illness No Information Functional Status Date Functional Assessmen t No Information Instructions Date Instruction Additional Infor mation No Information Assessments Type Assessment Date No Information Patient Care Teams Name Effective Dates (start - stop) Status Members No Information
--- OUTSIDE RECORDS SUMMARY | 2025-01-24 21:07 | XMS_ITS | Encounter Summary ---
Author Organization [facility] Facility Care Team Providers Care Chief Green Officer Name Role Phone Cecilio Carpenter Primary Care Provider [phone] Mindy Oseguera DRUGLESS PHYSICIAN Primary Care Provider [phone] Cecilio Carpenter Primary Care Provider [phone] Mindy Oseguera DRUGLESS PHYSICIAN Primary Care Provider Encounter Details Date Type Department Care Team (Latest Contact Info) Description 11/28/2017 Orders Only [facility] CLINCONV Provider, MD [facility] [address] [place] [address] Social History Tobacco Use Types Packs/Day Years Used Date Smoking Tobacco: Never Assessed Sex and Gender Information Value Date Recorded Sex Assigned at Not on file Legal 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 us Historical Provider Final Res ult documented in this encounter Visit Diagnoses Not on filedocumented in this encounter Care Teams Chief Green Officer Relationship Specialty Start Date End Date Cecilio Carpenter PA PCP - General Family Medicine 08/20/19 07/30/24 Mindy Oseguera, DRUGLESS PHYSICIAN [address] [place] [address]609 PCP - General Family Medicine 07/31/24 12/18/24 Cecilio Carpenter PA [address] [place] [address] 819860 PCP - General Family Medicine 12/19/24 01/15/25 Mindy Oseguera, DRUGLESS PHYSICIAN [address] [place] [address] [id number] PCP - General Family Medicine 01/16/25 documented as of this encounter
--- OUTSIDE RECORDS SUMMARY | 2025-01-24 21:07 | XMS_ITS | Encounter Summary ---
Author Organization [facility] Facility Care Team Providers Care Security Management Specialist Name Role Phone Cecilio Carpenter Primary Care Provider [phone] Mindy Oseguera NP Primary Care Provider [phone] Cecilio Carpenter Primary Care Provider [phone] Mindy Oseguera DRIP MOLDER Primary Care Provider [phone] Encounter Details Date Type Department Care Team (Latest Contact Info) Description 10/19/2018 Orders Only MMG CLINCONV Provider, MD S[facility] [address] [place] [address] Social History Tobacco Use Types Packs/Day Years Used Date Smoking Tobacco: Never Assessed Sex and Gender Information Value Date Recorded Sex Assigned at Not on file Legal Sex Male 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 Historical Provider Final Res ult documented in this encounter Visit Diagnoses Not on filedocumented in this encounter Care Teams Security Management Specialist Relationship Specialty Start Date End Date Cecilio Carpenter PA PCP - General Family Medicine 08/20/19 07/30/24 Mindy Oseguera DRIP MOLDER [address] [place] [address] 159419 PCP - General Family Medicine 07/31/24 12/18/24 Cecilio Carpenter PA [address] [place] [address] PCP - General Family Medicine 12/19/24 01/15/25 Mindy Oseguera DRIP MOLDER [address] [place] [address] 330579 PCP - General Family Medicine 01/16/25 documented as of this encounter
--- OUTSIDE RECORDS SUMMARY | 2025-01-24 21:07 | XMS_ITS | Clinical Summary ---
Author Organization [facility] Address [address] [place] [address] Care Team Providers Care It Manager Name Role Phone Glenroy Terry DO Primary Care Provider [phone] Allergies No known active allergies Medications atorvastatin 20 MG tablet TK 1 T PO ONCE D 3 11/26/2017 Active sildenafil (VIAGRA) 50 MG tablet 09/16/2016 Active erythromycin 5 MG/GM (0.5%) ophthalmic ointment Apply 1 cm ribbon in affected eye(s) up to 6x/day x7-10 days 3.5 g 09/11/2018 Active Social History Tobacco Use Types Packs/Day Years Used Date Smoking Tobacco: Some Days Smokeless Tobacco: Never Alcohol Use Standard Drinks/Week Comments Yes 0 (1 standard drink = 0.6 oz pur e alcohol) Sex and Gender Information Value Date Recorded Sex Assigned at Not on file Legal Sex Male 8:10 PM CDT Gender Identity Not on file Sexual Orientation Not on file Last Filed Vital Signs Vital Sign Reading Time Taken Comments Blood Pressure 137/79 09/11/2018 1:50 PM ADOPTION AGENT Pulse 90 09/11/2018 1:50 PM ADOPTION AGENT Temperature 37.2 C (99 F) 09/11/2018 1:50 PM ADOPTION AGENT Respiratory Rate 20 09/11/2018 1:50 PM ADOPTION AGENT Oxygen Saturation 99% 09/11/2018 1:50 PM ADOPTION AGENT Inhaled Oxygen Concentration - - Weight 89.8 kg (198 lb) 09/11/2018 1:50 PM ADOPTION AGENT Height 185.4 cm (6' 1 ) 09/11/2018 1:50 PM ADOPTION AGENT Body Mass Index 26.12 09/11/2018 1:50 PM ADOPTION AGENT Plan of Treatment Health Maintenance Due Date Last Done Comments Colorectal Cancer Screening Colonoscopy (10 Years) 1950 Hepatitis C 02/27/1968 DTaP, Tdap and Td Vaccines ( 1 - Tdap) 1969 Pneumococcal Vaccine: 50+ Ye ars (1 of 2 - PCV) 1969 Zoster Vaccines (1 of 2) 02/27/2000 Annual Medicare Wellness Visit 2015 COVID-19 Vaccine (1 - 2023-2 5 season) 2024 RSV Immunization or 60+ Years (1 - 1-dose 75+ series) 2025 Meningococcal B Vaccine Aged Out No l onger eligible based on patient's age to complete this topic Meningococcal Vaccine Aged Out No lo xochilt eligible based on patient's age to complete this topic RSV Immunizations Under 20 Months Aged Out No longer eligible based on patient's age to complete this topic Insurance [employer]ENCE Care Teams It Manager Relationship Specialty Start Date End Date Glenroy Terry DO [address] [place] [address] PCP - General FAMILY PRACTICE 09/11/18
[2025-01-24 21:15] VITALS: BP 145/93; PULSE 112; RESP 20; TEMP 36.8; O2SAT 98
--- OUTSIDE RECORDS SUMMARY | 2025-01-24 23:44 | XMS_ITS | Clinical Summary ---
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
--- OUTSIDE RECORDS SUMMARY | 2025-01-24 23:44 | XMS_ITS | Clinical Summary ---
Author Organization [facility] Address [address] [place] [address] Care Team Providers Care Aircraft Parts Assembler Name Role Phone Lulu Khanna MD Primary Care Provider [phone] Source Comments [facility],non-owned Affiliates and Associated Physician Practices is amultiple site organization consisting of ambulatory clinics and hospital sitesin [place], [place], [place] and [place]. This disclosure is being madepursuant to the Care Everywhere program and may not contain all information available regarding this patient. Last updated 18.[facility] Social History Tobacco Use Types Packs/Day Years [...] age to complete this topic Care Teams Aircraft Parts Assembler Relationship Specialty Start Date End Date Lulu Khanna MD [address] [place] [address] PCP - General 10/19/18
--- OUTSIDE RECORDS SUMMARY | 2025-01-24 23:44 | XMS_ITS | Encounter Summary ---
Author Organization [facility] Facility Care Team Providers Care Civil Cadd Technician Name Role Phone Cecilio Carpenter Primary Care Provider [phone] Mindy Oseguera SECONDARY SPANISH TEACHER Primary Care Provider [phone] Cecilio Carpenter Primary Care Provider [phone] Mindy Oseguera SECONDARY SPANISH TEACHER Primary Care Provider [phone] Encounter Details Date Type Department Care Team (Latest Contact Info) Description 11/28/2017 Orders Only MMG CLINCONV Provider, MD S[facility] [address] [place] [address] Social History Tobacco Use Types Packs/Day Years Used Date Smoking Tobacco: Never Assessed Sex and Gender Information Value Date Recorded Sex Assigned at Not on file 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 Gender Identity Not on file Sexual Orientation [...] on filedocumented in this encounter Care Teams Civil Cadd Technician Relationship Specialty Start Date End Date Cecilio Carpenter PA PCP - General Family Medicine 08/20/19 07/30/24 Mindy Oseguera, SECONDARY SPANISH TEACHER [address] [place] [id number] PCP - General Family Medicine 07/31/24 12/18/24 Cecilio Carpenter PA [address] [place] [id number] PCP - General Family Medicine 12/19/24 01/15/25 Mindy Oseguera, SECONDARY SPANISH TEACHER [address] [place] [id number] PCP - General Family Medicine 01/16/25 documented as of this encounter
--- OUTSIDE RECORDS SUMMARY | 2025-01-24 23:44 | XMS_ITS | Encounter Summary ---
Author Organization [facility] Facility Care Team Providers Care Marketing Planning Manager Name Role Phone Cecilio Carpenter Primary Care Provider [phone] Mindy Oseguera NP Primary Care Provider Cecilio Carpenter Primary Care Provider [phone] Mindy Oseguera DENTAL LABORATORY TECHNOLOGY TEACHER Primary Care Provider [phone] Encounter Details Date Type Department Care Team (Latest Contact Info) Description 10/19/2018 Orders Only MMG CLINCONV Provider, MD S[facility] [address] [place] [address] Social History Tobacco Use Types Packs/Day Years Used Date Smoking Tobacco: Never Assessed Sex and Gender Information Value Date Recorded Sex Assigned at Not on file Legal Sex Male 1:01 PM EXTENDER Gender Identity Not on file Sexual Orientation Not on file documented as of this encounter Plan of Treatment Not on file documented as of this encounter Procedures Procedure Name Priority Date/Time Associated Diagnosis Comments SCAN - PATHOLOGY 10/23/2018 12:0 0 AM EXTENDER documented in this encounter Results * SCAN - PATHOLOGY (10/23/2018 12:00 AM EXTENDER) Narrative 10/23/2018 12:00 AM EXTENDER Ordered by an unspecified provider. Historical Provider Final Res ult documented in this encounter Visit Diagnoses Not on filedocumented in this encounter Care Teams Marketing Planning Manager Relationship Specialty Start Date End Date Cecilio Carpenter PA PCP - General Family Medicine 08/20/19 07/30/24 Mindy Oseguera DENTAL LABORATORY TECHNOLOGY TEACHER [address] [place] [id number] PCP - General Family Medicine 07/31/24 12/18/24 Cecilio Carpenter PA [address] [place] [address] PCP - General Family Medicine 12/19/24 01/15/25 Mindy Oseguera DENTAL LABORATORY TECHNOLOGY TEACHER [address] [place] [address] PCP - General Family Medicine 01/16/25 documented as of this encounter
--- OUTSIDE RECORDS SUMMARY | 2025-01-24 23:44 | XMS_ITS | Encounter Summary ---
Author Organization [facility] Address [address] [place] [address] Care Team Providers Care Underwriting Consultant Name Role Phone Lulu Khanna MD Primary Care Provider [phone] Encounter Details Date Type Department Care Team (Late st Contact Info) Description 10/19/2018 Lab Requisition [facility] Care DermPath Lab [address] [facility], [place] [id number] Glenroy Terry DO [address] [address] Social History Tobacco Use Types Packs/Day Years [...] Comments DERMATOPATHOLOGY Routine 10/19/2018 12:0 0 AM CHANGE PERSON documented in this encounter Results * DERMATOPATHOLOGY (10/19/2018 12:00 AM CHANGE PERSON) Case Report Dermatopathology Report Case: [id number] Authorizing Provider: Glenroy Terry DO Collected: 10/19/2018 12:00 AM Pathologist: Anastasiya Bains MD Received: 10/19/2018 02:23 PM Specimen: Skin, right face 9 4:30 PM CHANGE PERSON DERMATOPATHOLOGY LABORATORY Final Diagnosis Specimen A. SKIN, right face: PIGMENTED SEBORRHEIC KERATOSIS (L82.1) 9 4:30 PM CHANGE PERSON DERMATOPATHOLOGY LABORATORY Clinical History Inflammed tag 4:30 [...] characteristic determined by the Dermatopathology Laboratory at [facility], directed by Dr. Gee Dooley. These tests need not be, and therefore are not, approved by the [place] Food and Drug Administration. The tests are used for clinical purposes. Billing Codes Specimen Charges Stain Charges 09195 1 4:30 PM [facility] DERMATOPATHOLOGY LABORATORY Embedded Images 4:30 PM [facility] DERMATOPATHOLOGY LABORATORY Pathology/Cytolog y TISSUE SPECIMEN FROM SKIN / Unknown 10/19/2018 10/19/2018 2:23 PM CHANGE PERSON Glenroy Terry DO LAB - PATHOLOGY/CYTOLOGY ORDERA BLES Final Result DERMATOPATHOLOGY LABORATORY [facility] - Department of Dermatology [address] [place] [address], 5th Floor Lab B [place], [place] [id number] [place] [address] documented in this encounter Visit Diagnoses Not on filedocumented in this encounter Care Teams Underwriting Consultant Relationship Specialty Start Date End Date Lulu Khanna MD [address] [place] [address] PCP - General 10/19/18 documented as of this encounter
--- OUTSIDE RECORDS SUMMARY | 2025-01-24 23:44 | XMS_ITS | Clinical Summary ---
Author Organization [facility] Address [address] [place] [id number] Care Team Providers Care Cath Lab Radiology Technician Name Role Phone Mindy Oseguera NP Primary Care Provider [phone] Allergies Active Allergy Reactions Criticality Noted Date Comments Atorvastatin Rash Medium 10/30/2019 Alendronate Unknown 10/19/2023 Medications aspirin 81 mg enteric coated tablet Take 1 tablet (81 mg total) by mouth daily Active aqliorhg-gvn-SL-lycopen -lutein 0.4-300-250 mg-mcg-mcg tabletIndications:Vitam in Deficiency Prevention [...] 09/14 Assessment & Plan (09/14/2024 8:55 AM HARNESS PULLER): CBC, CMP, lipid panel, PSA ordered. Colonoscopy [...] 09/07/2023 Assessment & Plan (09/07/2023 11:44 AM HARNESS PULLER): Concerning, sending to derm Age-related osteoporosis apolonia youssef current pathological fracture 09/07/2023 Assessment & Plan (09/14/2024 8:51 AM HARNESS PULLER): Chronic, controlled with daily Vitamin D and Calcium supplements. Patient was unable to tolerate bisphosphonate causes vomiting and muscle cramping. DEXA scan UTD repeat next year. Assessment & Plan (03/12/2024 6:44 AM CDT): Can not tolerate fosomax, will stay with calcium and vitamin D Assessment & Plan (10/19/2023 11:06 AM HARNESS PULLER): Can not tolerate fosomax, will stay with calcium and vitamin D Assessment & Plan (09/29/2023 12:37 PM HARNESS PULLER): Chronic, uncontrolled. Patient to discontinue Fosamax due to muscle cramping. Patient to begin daily calcium and vitamin D supplement. Patient to follow up with DEVANTE Carpenter in 3 weeks to discuss other treatment options for his osteoporosis. Assessment & Plan (09/07/2023 12:38 PM HARNESS PULLER): Educated, discussed options, elected to start Fosamax. 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 Follow up in 6 months. Assessment & Plan (01/02/2024 6:22 AM CDT): Continue D, add calcium Assessment & Plan (09/07/2023 12:33 PM HARNESS PULLER): Continue D, add calcium Assessment & Plan (06/02/2022 10:57 AM CDT): Continue vitamin-D Assessment & Plan (03/16/2021 11:19 AM CDT): Continue taking 5000 daily Assessment & Plan (09/10/2020 12:03 PM HARNESS PULLER): CPM Assessment & Plan (03/12/2020 11:35 AM CDT): CPM History of prostate cancer 02/01/2018 Assessment & Plan (09/10/2024 11:16 AM HARNESS PULLER): Diagnosed in 2014, underwent radiation treatment. Following with urology yearly. Assessment & Plan (01/02/2024 6:22 AM CDT): Stable with no issues Assessment & Plan (09/07/2023 12:33 PM HARNESS PULLER): Stable with no issues Assessment & Plan [...] 04/25/2017 Assessment & Plan (09/14/2024 8:52 AM HARNESS PULLER): Chronic, controlled with Crestor 40 mg daily. [...] routine. Assessment & Plan (10/19/2023 11:08 AM HARNESS PULLER): Patient is to continue present medications, work on diet and exercise as discussed, we did discuss the medications and potential side effects and signs and symptoms that would warrant calling office. Follow up routine. Assessment & Plan (09/07/2023 12:33 PM HARNESS PULLER): Patient is to continue present medications, work [...] routine. Assessment & Plan (09/10/2020 12:02 PM HARNESS PULLER): Diet and labs as ordered Assessment & Plan (03/12/2020 11:33 AM CDT): Very mild, OTC fish oil, diet and exercise, labs next visit PAD (peripheral artery disease) ([facility]) 2016 Assessment & Plan (09/14/2024 8:53 AM HARNESS PULLER): Chronic, stable. Patient to continue on Crestor 40 mg daily. Follow up in 6 months. Assessment & Plan (03/12/2024 6:44 AM CDT): This is stable and non-smoker Assessment & Plan (01/02/2024 6:22 AM CDT): This is stable and non-smoker Assessment & Plan (10/19/2023 11:05 AM HARNESS PULLER): This is stable and non-smoker Assessment & [...] follow Assessment & Plan (09/10/2020 12:02 PM HARNESS PULLER): Not an issue Assessment & Plan (03/12/2020 11:33 AM CDT): Currently not an issue, must stop smoking, I offered my assistance Acquired absence of left leg above knee 06/04/20 Assessment & Plan (09/14/2024 8:46 AM HARNESS PULLER): Patient has left lower leg prostatic, received 2 years ago. He ambulates with prostatic and a cane. Denies any recent falls. Follow up in 6 months. Assessment & Plan (03/12/2024 6:43 AM CDT): No current issues Assessment & Plan (01/02/2024 6:22 AM CDT): No current issues Assessment & Plan (10/19/2023 11:05 AM HARNESS PULLER): No current issues Assessment & Plan (09/07/2023 12:27 PM HARNESS PULLER): Stable with no issues Assessment & Plan [...] well Assessment & Plan (09/10/2020 12:02 PM HARNESS PULLER): Will follow Assessment & Plan (03/12/2020 11:32 AM CDT): Pending new prosthesis, no issues Enlarged prostate with lower urinary tract sympt oms (LUTS) 06/04/2016 Assessment & Plan (09/14/2024 8:52 AM HARNESS PULLER): Chronic, stable patient following with urology. No [...] 09/14/2024 Assessment & Plan (09/29/2023 12:36 PM HARNESS PULLER): Patient to discontinue Fosamax. Patient given Toradol [...] & Plan (02/05/2021 12:04 PM CDT): Continue znoy-eye-hpkosrn Robitussin and Mucinex medicines as ordered follow-up on Patient was doing better after I gave him a hand-held nebulizer Cellulitis of right lower extremity 03/12/2020 09/10/2024 Assessment & Plan (03/12/2020 11:35 AM CDT): This is new, medications as ordered, skin care, we did discuss s/s that would warrant further eval and treatment Smoker 10/03/2017 09/14/2024 Assessment & Plan (10/19/2023 11:05 AM HARNESS PULLER): Quit 3 months ago Assessment & Plan (09/07/2023 12:33 PM HARNESS PULLER): Encourage stopping Assessment & Plan (06/02/2022 10:56 [...] gum Assessment & Plan (09/10/2020 12:02 PM HARNESS PULLER): quit Assessment & Plan (03/12/2020 11:33 AM [...] recommended Assessment & Plan (09/10/2020 12:03 PM HARNESS PULLER): 2 year stability, no furhter work up from CT 2017 Assessment & Plan (03/12/2020 11:34 AM CDT): 2 year stability in 2017, no further imaging Encounters Date Type Department Care Team Description 01/16/2025 Results Follow-Up [facility] Primary Care [address] [place] [address] [address] [place] [address] Mindy Oseguera NP 01/04/2025 1:28 PM CDT - 01/04/2025 11:59 PM CDT Hospital Encounter [facility] [address] [place] [address] Nicotine dependence, cigarettes, in remission Discharge Disposition: [...] on file Legal Sex Male 1:01 PM HARNESS PULLER Gender Identity Not on file Sexual Orientation Not on file Obstetrics History Last Filed Vital Signs Vital Sign Reading Time Taken Comments Blood Pressure 118/80 09/10/2024 10:59 AM HARNESS PULLER Pulse 72 09/10/2024 10:59 AM HARNESS PULLER Temperature 36.1 C (97 F) 09/10/2024 10:59 AM HARNESS PULLER Respiratory Rate 16 09/10/2024 10:59 AM HARNESS PULLER Oxygen Saturation 95% 09/10/2024 10:59 AM HARNESS PULLER Inhaled Oxygen Concentration - - Weight 94.5 kg (208 lb 6.4 oz) 09/10/2024 10:59 AM HARNESS PULLER Height 185.4 cm (6' 1 ) 09/10/2024 10:59 AM HARNESS PULLER Body Mass Index 27.5 09/10/2024 10:59 AM HARNESS PULLER Plan of Treatment Health Maintenance Due Date [...] remission PSA SCREEN Routine 09/10/2024 11:55 AM HARNESS PULLER History of prostate cancer COLONOSCOPY 10/10/2023 9:51 AM HARNESS PULLER US ABDOMINAL AORTIC ANEURYSM SCREENING Schedule Routine, Read Routine (OP Routine) 09/01/2023 10:00 AM HARNESS PULLER Screening for AAA (abdominal aortic aneurysm) HEPATITIS C ANTIBODY Routine 09/14/2019 8:27 AM HARNESS PULLER Need for hepatitis C screening test from [...] Edward Resendez D.O. PS: PS Report ID: [id number] Reading Location: [id number] Procedure Note Edward Resendez, - 01/15/2025 EXAM [...] Edward Resendez D.O. PS: PS Report ID: [id number] Reading Location: [place] [address] us Mindy Oseguera [employer] IMG CT PROCEDURES Final Result * PSA screen (09/10/2024 11:55 AM HARNESS PULLER) PSA-Total 0.68 <=6.20 ng/mL Comment: Interpretive Data [...] data last revised 22. Testing performed by: [facility], [address] [place] [address]., [id number] Blood 09/10/2024 11:5 5 AM HARNESS PULLER 09/10/2024 1:00 PM HARNESS PULLER us Mindy Oseguera NP LAB BLOOD ORDERABLES Final Res ult [facility] [address] [facility] Department [place] [address] * COLONOSCOPY (10/10/2023 9:51 AM HARNESS PULLER) Anatomical Region Laterality Modality Other Narrative Procedure Note Jass Godfrey MD - 10/10/2023 9:51 AM CST [facility] GI ENDOSCOPY Patient Name: Onel Flynn Procedure Date: 10/10/2023 9:51 AM Date of : 1950 Admit Type: Outpatient Age: 73 Gender: Male Attending MD: Jass Godfrey M.D. Room: [facility] ENDOSCOPY ROOM 05 Note Status: Finalized Procedure: [...] The scope was passed under direct vision.The CF-[id number] colonoscope was introduced through theanus and advanced [...] On: 10/10/2023 9:51 AM Recognized by the [employer] for promoting quality in endoscopy us Jass Godfrey MD ENDOSCOPY PROCEDURES Fin al Result * US Abdominal Aortic Aneurysm Screening (09/01/2023 10:00 AM HARNESS PULLER) Anatomical Region Laterality Modality Abdomen Ultrasound 09/02/2023 8:14 AM HARNESS PULLER Narrative 09/02/2023 8:15 AM HARNESS PULLER EXAM DESCRIPTION: US ABDOMINAL AORTIC ANEURYSM SCREENING [...] Kuldip Winn M.D. CH: MILDRED Report ID: [id number] Reading Location: [id number] Procedure Note Kuldip Winn Jr., MD - [...] Kuldip Winn M.D. CH: MILDRED Report ID: [id number] Reading Location: [id number] us Cecilio LOW IMG US PROCEDURES Final Result * Hepatitis C antibody (09/14/2019 8:27 AM HARNESS PULLER) Hep C Ab TNP NONREACTIVE [facility] Comment: SPECIMEN SENT TO [facility] FOR TESTING Blood specimen (specimen) 09/14/2019 8:27 AM HARNESS PULLER 09/14/2019 8:59 AM HARNESS PULLER Narrative Resulting Agency Comment CLI Cecilio LOW LAB MICROBIOLOGY - GENERAL [place] Final Result [facility] [address] [phone] from Last 3 Months or Most Recently Relevant to Health Maintenance Insurance IDPA [facility] MEDICARE ADVANTAGE IDPA [facility] MEDICARE ADV [facility] MEDICARE ADVANTAGE Care Teams Cath Lab Radiology Technician Relationship Specialty Start Date End Date Mindy Oseguera NP [address] [place] [address] PCP - General Family Medicine 01/16/25
--- OUTSIDE RECORDS SUMMARY | 2025-01-24 23:44 | XMS_ITS | Continuity of Care Document ---
Author Organization [facility] [place] Address [address] [place] [address] [address] [place] [address] Phone Care Team Providers Care Coal Pulverizer Operator Name Role Phone Olimpia Eliseo RAE Unavailable [...] Date Provider Providers Copied on Encounter [facility] [place], [address], [id number], [place] tel:[phone] [place] No Information 3 Olimpia Barros [address] [facility], [address], [place], [address], [place]. tel:[phone] Referring Provider: Cecilio Carpenter, [address], [place], [address]. tel:[phone], [place], [place], [address], [place] tel:[phone] [place] No Information Dec-0 5 3 Muehl Eliseo. [address] [place] [address], [address], [place], [facility], . tel:[phone] Referring Provider: Cecilio Carpenter, [address], [place], [address]. tel:[phone], [place], [place], [address], [place] tel:[phone] [place] No Information Jul-3 0- 3 Muehl Eliseo. [address] [place] [address], [address], [place], [facility], . tel:[phone] Referring Provider: Cecilio Carpenter, [address], [place], [address]. tel:[phone] [address], [place], [place], [address], [place] tel:[phone] [place] No Information Jul-2 3 Muehl Eliseo. [address] [place] [address], [address], [place], [facility], [place]. tel:[phone] Referring Provider: Cecilio Carpenter, [address], [place], [address]. tel:[phone], [place], [place], [address], [place] tel:[phone] [place] No Information Jul-2 3 Muehl Eliseo. [address] [place] [address], [address], [place], [facility], [place]. tel:[phone] Referring Provider: Cecilio Carpenter, [address], [place], [address]. tel:[phone], [place], [place], [address], tel:[phone] [place] No Information Jul-2 3 Muehl Eliseo. [address] [place] [address], [address], [place], [facility], [place]. tel:[phone] Referring Provider: Cecilio Carpenter, [address], [place], [address]. tel:[phone], [place], [place], [address], tel:[phone] [place] No Information Nov-1 3 Muehl Eliseo. [address] [place] [address], [address], [place], [facility], [place]. tel:[phone] Referring Provider: Cecilio Carpenter, [facility] [address], [place], [address]. tel:[phone] [address], [place], [place], [address], tel:[phone] [place] No Information 3 Muehl Eliseo. [address] [place] [address], [address], [place], [facility], [place]. tel:[phone] Referring Provider: Cecilio Carpenter, [address], [place], [address]. tel:[phone] [address], [place], [place], [address], tel:[phone] [place] No Information 0 3 Muehl Eliseo. [address] [place] [address], [address], [place], [facility], [place]. tel:[phone] Referring Provider: Cecilio Carpenter, [address] [facility] [address], [place], [address]. tel:[phone] [address], [place], [place], [address], tel:[phone] [place] No Information Nov-0 3 Muehl Eliseo. [address] [place] [address], [address], [place], [facility], [place]. tel:[phone] Referring Provider: Cecilio Carpenter, [address], [place], [address]. tel:[phone] [address], [place], [place], [address], tel:[phone] [place] No Information Nov-0 2-202 3 Muehl Eliseo. [address] [place] [address], [address], [place], [facility], [place]. tel:[phone] Referring Provider: Cecilio Carpenter, [address], [place], [address]. tel:[phone] [address], [place], [place], [address], tel:[phone] [place] No Information Jun-3 1- 3 Muehl Eliseo. [address] [place] [address], [address], [place], [facility], [place]. tel:[phone] Referring Provider: Cecilio Carpenter, [address], [place], [address]. tel:[phone] [address], [place], [place], [address], [place] tel:[phone] [place] No Information Jun-2 6-202 3 Muehl Eliseo. [address] [place] [address], [address], [place], [facility], [place]. tel:[phone] Referring Provider: Cecilio Carpenter, [address], [place], [address]. tel:[phone] [address], [place], [address], [place] tel:[phone] [place] No Information Oct-2 4-202 3 Muehl Eliseo. [address] [place] [address], [address], [place], [facility], . tel:[phone] Referring Provider: Cecilio Carpenter, [address], [place], [address]. tel:[phone] [facility] [address], [place], [place], [address], [place] tel:[phone] [place] No Information 3 Olimpia Gomes. [address] [place] [address], [address], [place], [facility], . tel:[phone] Referring Provider: Cecilio Carpenter, [address] [address], [place], [address]. tel:[phone] [facility] [address], [place], [place], [address], [place] tel:[phone] [place] No Information 0- 7 Arnold Marc. [address] [place] [address], [facility], . [phone] Referring Provider: Louie Spence, [place], [address]. tel:[phone], [place], [place], [address], [place] tel:[phone] [place] No Information - 7 Thuet Jens. [address] [place] [address], [address], [place], [facility], . tel:[phone] Referring Provider: Louie Spence, [place], [address]. tel:[phone] [facility] [address], [place], [place], [address], [place] tel:[phone] [place] No Information 0 5- 7 Thuet Jens. [address] [place] [address], [address], [place], [facility], . tel:[phone] Referring Provider: Louie Spence, [place], [address]. tel:[phone] [facility] [address], [place], [place], [address], tel:[phone] [place] No Information Jame-0 3-201 7 Thuet Jens. [address] [place] [address], [address], [place], [facility], . tel:[phone] Referring Provider: [place], [address]. tel:[phone] [address], [place], [address], tel:[phone] [place] No Information Marek-3 0-201 7 Muehl Karina. [address] [place] [address], [address], [place], [facility], . tel:[phone] Referring Provider: [place], [address]. tel:[phone] [address] [facility], [place], [place], [address], tel:[phone] [place] No Information Marek-2 8-201 7 Thuet Jens. [address] [place] [address], [address], [place], [facility], . tel:[phone] Referring Provider: [place], [address]. tel:[phone] [facility] [address] [facility], [place], [place], [address], tel:[phone] [place] No Information Marek-2 6-201 7 Thuet Jens. [address] [place] [address], [address], [place], [facility], . tel:[phone] Referring Provider: [place], [address]. tel:[phone] [facility] [facility], [place], [address], tel:[phone] [place] No Information Marek-2 3-201 7 Thuet Jens. [address] [place] [address], [address], [place], [address], [place]. tel:[phone] Referring Provider: [place], [address]. tel:[phone] [facility] [address], [place], [place], [address], [place] tel:[phone] [place] No Information 7 Thuet Jens. [address] [place] [address], [address], [place], [address], [place]. tel:[phone] Referring Provider: [place], [address]. tel:[phone] [facility] [address], [place], [place], [address], [place] tel:[phone] [place] No Information 7 Threlkeld Demi. . Referring Provider: [place], [address]. tel:[phone] [facility] [address], [place], [place], [address], [place] tel:[phone] [place] No Information 7 Thuet Jens. [address] [place] [address], [address], [place], [address], [place]. tel:[phone] Referring Provider: [place], [address]. tel:[phone] [facility] [address], [place], [place], [address], [place] tel:[phone] [place] No Information 7 Thuet Jens. [address] [place] [address], [address], [place], [address], [place]. tel:[phone] Referring Provider: [place], [address]. tel:[phone] [facility] [address], [place], [place], [address], [place] tel:[phone] [place] No Information Marek-1 2-201 7 Thuet Jens. [address] [place] [address], [address], [facility], . tel:[phone] Referring Provider: [place], [address]. tel:[phone] [facility] [address], [place], [place], [address], [place] tel:[phone] [place] No Information Marek-0 9-201 7 Thuet Jens. [address] [place] [address], [address], [facility], . tel:[phone] Referring Provider: [place], [address]. tel:[phone] [facility] [address], [place], [place], [address], [place] tel:[phone] [place] No Information Marek-0 7-201 7 Thuet Jens. [address] [place] [address], [address], [place], [facility], . tel:[phone] Referring Provider: [place], [address]. tel:[phone] [facility] [address], [place], [place], [address], [place] tel:[phone] [place] No Information Marek-0 5-201 7 rAnold Marc. [address] [place] [address], . tel:[phone] Referring Provider: [place], [address]. tel:[phone] [facility], [place], [place], [address], [place] tel:[phone] [place] No Information Marek-0 2-201 7 Muehl Eliseo. [address] [place] [address], [address], [place], [facility], . tel:[phone] Referring Provider: [place], [address]. tel:[phone] [address], [place], [place], [address], tel:[phone] [place] No Information May-3 1-201 7 Muehl Eliseo. [address] [place] [address], [address], [place], [facility], [place]. tel:[phone] Referring Provider: [place], [address]. tel:[phone], [id number], tel:[phone] [place] No Information January-2 6-201 7 Muehl Eliseo. [address] [place] [address], [address], [place], [facility], . tel:[phone] Referring Provider: [place], [address]. tel:[phone], [id number], tel:[phone] [place] No Information May-2 4-201 7 Muehl Eliseo. [address] [place] [address], [address], [place], [facility], [place]. tel:[phone] Referring Provider: [place], [address]. tel:[phone] [address], [place], [place], [address], tel:[phone] [place] No Information May-2 2-201 7 Muehl Eliseo. [address] [place] [address], [address] [place] [address], [facility], . tel:[phone] Referring Provider: [place], [address]. tel:[phone] [address] [facility], [place], [place], [address], tel:[phone] [place] No Information 9-201 7 Muehl Eliseo. [address] [place] [address], [address], [place], [facility], . tel:[phone] Referring Provider: [place], [address]. tel:[phone] [place] [address], [id number], tel:[phone] [place] No Information -201 7 Muehl Eliseo. [address] [place] [address], [facility] [address], [place], [facility], . tel:[phone] Referring Provider: [place], [address]. tel:[phone] [address] [place] [address], [id number], [place] tel:[phone] [place] No Information 5-201 7 Muehl Eliseo. [address] [place] [address], [address], [place], [facility], . tel:[phone] Referring Provider: [place], [address]. tel:[phone] [address], [address], [place] tel:[phone] [place] No Information 2-201 7 Muehl Eliseo. [address] [place] [address], [address], [place], [facility], . tel:[phone] Referring Provider: [place], [address]. tel:[phone] [address], [place], [place], [address], tel:[phone] [place] No Information May-1 0-201 7 Muehl Eliseo. [address] [place] [address], [address], [place], [facility], . tel:[phone] Referring Provider: [place], [address]. tel:[phone], [place], [place], [address], tel:[phone] [place] No Information May-0 8-201 7 Muehl Eliseo. [address] [place] [address], [address] [address], . tel:[phone] Referring Provider: [place], [address]. tel:[phone] [address], [place], [place], [address], [place] tel:[phone] [place] No Information May-0 5-201 7 Muehl Eliseo. [address] [place] [address], [address], [place], [facility], . tel:[phone] Referring Provider: [place], [address]. tel:[phone] [facility] [address] [place], [place] [address], [place], [address], [place] tel:[phone] [place] No Information May-0 3-201 7 Muehl Eliseo. [address] [place] [address], [address] [address], . tel:[phone] Referring Provider: [place], [address]. tel:[phone] [address], [place], [place], [address], [place] tel:[phone] [place] No Information May-0 1-201 7 Muehl Eliseo. [address] [facility], [address], [place], [facility], . tel:[phone] Referring Provider: [place], [address]. tel:[phone] [address] [address] [facility], [place], [place], [address], tel:[phone] [place] No Information Dec-2 8-201 7 Muehl Eliseo. [address] [place] [address], [address], [place], [facility], [place]. tel:[phone] Referring Provider: Louie Spence, [place], [address]. tel:[phone] [address], [place], [place], [address], [place] tel:[phone] [place] No Information Dec-2 6-201 7 Muehl Eliseo. [address] [place] [address], [address], [place], [facility], [place]. tel:[phone] Referring Provider: [place], [address]. tel:[phone] [address], [place], [address], [place] tel:[phone] [place] No Information Dec-2 5-201 7 Muehl Eliseo. [address] [place] [address], [address], [place], [facility], [place]. tel:[phone] Referring Provider: [place], [address]. tel:[phone] [facility] [address] [facility], [place], [address], [place] tel:[phone] [place] No Information Dec-2 1-201 7 Muehl Eliseo. [address] [place] [address], [address], [place], [facility], [place]. tel:[phone] Referring Provider: [place], [address]. tel:[phone] [address], [place], [place], [address], tel:[phone] [place] No Information 7 Muehl Eliseo. [address] [place] [address], [address], [place], [facility], . tel:[phone] Referring Provider: Louie Spence, [place], [address]. tel:[phone] [address], [place], [place], [address], [place] tel:[phone] [place] No Information 7 Muehl Eliseo. [address] [place] [address], [address], [place], [facility], . tel:[phone] Referring Provider: Louie Spence, [place], [address]. tel:[phone] [address], [place], [address], [place] tel:[phone] [place] No Information 7 Muehl Eliseo. [address] [place] [address], [address], [place], [facility], . tel:[phone] Referring Provider: [place], [address]. tel:[phone] [address], [place], [place], [address], [place] tel:[phone] [place] No Information 7 Muehl Eliseo. [address] [place] [address], [address], [place], [facility], [place]. tel:[phone] Referring Provider: Louie Spence, [place], [address]. tel:[phone] [facility] [address], [place], [place], [address], tel:[phone] [place] No Information Apr-1 0-201 7 Muehl Eliseo. [address] [place] [address], [address], [place], [facility], . tel:[phone] Referring Provider: [place], [address]. tel:[phone], [place], [place], [address], tel:[phone] [place] No Information Apr-0 7-201 7 Muehl Eliseo. [address] [place] [address], [address], [place], [facility], . tel:[phone] Referring Provider: [place], [address]. tel:[phone] [facility] [address] [place], [place] [address], [place], [address], [place] tel:[phone] [place] No Information Apr-0 5-201 7 Muehl Eliseo. [address] [place] [address], [address], [place], [facility], . tel:[phone] Referring Provider: [place], [address]. tel:[phone] [facility] [address] [place], [place] [address], [place], [place], [address], [place] tel:[phone] [place] No Information Apr-0 3-201 7 Muehl Eliseo. [address] [place] [address], [address] [address], . tel:[phone] Referring Provider: [place], [address]. tel:[phone] [facility] [address] [place], [place] [address], [place], [address], tel:[phone] [place] No Information Mar-3 1-201 7 Muehl Eliseo. [address] [place] [address], [address], [place], [facility], [place]. tel:[phone] Referring Provider: [place], [address]. tel:[phone] [address], [place], [address], [place] tel:[phone] [place] No Information Mar-2 7-201 7 Muehl Eliseo. [address] [place] [address], [address], [place], [facility], [place]. tel:[phone] Referring Provider: [place], [address]. tel:[phone] [address] [address], [place], [place], [address], [place] tel:[phone] [place] No Information Mar-2 4-201 7 Muehl Eliseo. [address] [place] [address], [address], [place], [facility], [place]. tel:[phone] Referring Provider: [place], [address]. tel:[phone] [address], [place], [place], [address], [place] tel:[phone] [place] No Information Mar-2 2-201 7 Muehl Eliseo. [address] [place] [address], [address], [place], [facility], [place]. tel:[phone] Referring Provider: [place], [address]. tel:[phone], [place], [address], [place] tel:[phone] [place] No Information Mar-2 0-201 7 Muehl Eliseo. [address] [place] [address], [address], [place], [facility], [place]. tel:[phone] Referring Provider: [place], [address]. tel:[phone], [place], [place], [address], tel:[phone] [place] No Information Mar-1 7-201 7 Muehl Eliseo. [address] [place] [address], [address], [place], [facility], . tel:[phone] Referring Provider: [place], [address]. tel:[phone], [place], [place], [address], [place] tel:[phone] [place] No Information Mar-1 5-201 7 Muehl Eliseo. [address] [place] [address], [address], [place], [facility], . tel:[phone] Referring Provider: Louie Spence, [place], [address]. tel:[phone], [place], [place], [address], [place] tel:[phone] [place] No Information Mar-1 3-201 7 Muehl Eliseo. [address] [place] [address], [address], [facility], . tel:[phone] Referring Provider: [place], [address]. tel:[phone], [place], [place], [address], [place] tel:[phone] [place] No Information Mar-1 0-201 7 Muehl Karina. [address] [place] [address], [address], [place], [facility], . tel:[phone] Referring Provider: [place], [address]. tel:[phone] [facility] [address] [facility], [place], [place], [address], [place] tel:[phone] [place] No Information Mar-0 8-201 7 Erika Clemente . Referring Provider: [place], [address]. tel: [facility] [address] [address], [place], [place], [address], [place] tel:[phone] [place] No Information Mar-0 6-201 7 Muehl Eliseo. [address] [place] [address], [address], [place], [facility], . tel:[phone] Referring Provider: Louie Spence, [place], [address]. tel:[phone] [facility] [address], [address], tel:[phone] [place] No Information Mar-0 3-201 7 Muehl Eliseo. [address] [place] [address], [address], [facility], . tel:[phone] Referring Provider: Louie Spence, [place], [address]. tel:[phone] [facility] [address], [id number], [place] tel:[phone] [place] No Information Mar-0 1-201 7 Muehl Eliseo. [address] [place] [address], [address], [place], [facility], [place]. tel:[phone] Referring Provider: [place], [address]. tel:[phone] [facility] [facility], [place], [address], tel:[phone] [place] No Information Feb-2 7-201 7 Muehl Eliseo. [address] [place] [address], [address], [place], [facility], . tel:[phone] Referring Provider: [place], [address]. tel:[phone] [address] [facility], [place], [place], [id number], tel:[phone] [place] No Information b- 4 7 Muehl Eliseo. [address] [place] [address], [address], [place], [place], [facility], . tel:[phone] Referring Provider: [place], [address]. tel:[phone] [address] [address], [place], [place], [id number], tel:[phone] [place] No Information b- 2 7 Muehl Eliseo. [address] [place] [address], [place], [facility], . tel:[phone] Referring Provider: [place], [address]. tel:[phone], [id number], [place] tel:[phone] [place] No Information b- 0-201 7 Erika Clemente . Referring Provider: [place], [address]. tel:[phone] [address], [place], [place], [id number], [place] tel:[phone] [place] No Information Oct- 7- 7 Muehl Eliseo. [address] [place] [address], [address], [place], [place], [facility], . tel:[phone] Referring Provider: [place], [address]. tel:[phone], [place], [place], [id number], [place] tel:[phone] [place] Pain in right kneeMuscle weakness (generalized) Unspecified abnormalities of gait and mobilityStiff ness of right knee, not elsewhere classifiedEff usion, right kneeStrain of right quadriceps muscle, fascia and tendon, subs Feb-201 7 Olimpia Gomes. [address] [facility], [address], [place], [address], [place]. tel:[phone] Referring Provider: Maico Chu, [address], [place], [address]. tel:[phone] Family History Family Member Type Diagnosis Age At Onset No Information Payers Payer name Insurance type Covered constitution party ID Authoriza tichristo(s) [employer] Medicare Replacement 16 [id number] Medicaid OON Write Off CI 00 Social [...]
--- OUTSIDE RECORDS SUMMARY | 2025-01-24 23:44 | XMS_ITS | Clinical Summary ---
Author Organization [facility] Address [address] [place] [address] Care Team Providers Care Peanut Grader Name Role Phone Glenroy Terry DO Primary Care Provider [phone] Allergies No known active allergies Medications atorvastatin [...] Comments Blood Pressure 137/79 09/11/2018 1:50 PM VAT SKIMMER Pulse 90 09/11/2018 1:50 PM VAT SKIMMER Temperature 37.2 C (99 F) 09/11/2018 1:50 PM VAT SKIMMER Respiratory Rate 20 09/11/2018 1:50 PM VAT SKIMMER Oxygen Saturation 99% 09/11/2018 1:50 PM VAT SKIMMER Inhaled Oxygen Concentration - - Weight 89.8 kg (198 lb) 09/11/2018 1:50 PM VAT SKIMMER Height 185.4 cm (6' 1 ) 09/11/2018 1:50 PM VAT SKIMMER Body Mass Index 26.12 09/11/2018 1:50 PM VAT SKIMMER Plan of Treatment Health Maintenance Due Date [...] complete this topic Insurance [employer] Care Teams Peanut Grader Relationship Specialty Start Date End Date Glenroy Terry DO [address] [place] [address] PCP - General FAMILY PRACTICE 09/11/18
--- OUTSIDE RECORDS SUMMARY | 2025-01-24 23:44 | XMS_ITS | Encounter Summary ---
Author Organization [facility] Care Team Providers Care Plastic Tubing Insulation Supervisor Name Role Phone Cecilio Carpenter Primary Care Provider [phone] Mindy Oseguera FOOT DOCTOR Primary Care Provider [phone] Cecilio Carpenter Primary Care Provider [phone] Mindy Oseguera FOOT DOCTOR Primary Care Provider [phone] Encounter Details Date Type Department Care Team (Latest Contact Info) Description 07/19/2016 Orders Only [facility] CLINCONV Provider, MD Sotero [address] [place] [address] Social History Tobacco Use Types Packs/Day Years Used Date Smoking Tobacco: Never Assessed Sex and Gender Information Value Date Recorded Sex Assigned at Not on file 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 Gender Identity Not on file Sexual Orientation [...] on filedocumented in this encounter Care Teams Plastic Tubing Insulation Supervisor Relationship Specialty Start Date End Date Cecilio Carpenter PA PCP - General Family Medicine 08/20/19 07/30/24 Mindy Oseguera FOOT DOCTOR [address] [place] [id number] PCP - General Family Medicine 07/31/24 12/18/24 Cecilio Carpenter PA [address] [place] [address] [id number] PCP - General Family Medicine 12/19/24 01/15/25 Mindy Oseguera, FOOT DOCTOR [address] [place] [address] [id number] PCP - General Family Medicine 01/16/25 documented as of this encounter
--- OUTSIDE RECORDS SUMMARY | 2025-01-24 23:44 | XMS_ITS | Referral Summary ---
Author Organization [facility] Address [address] [place] [address] Care Team Providers Care Child Monitor Name Role Phone Mindy Oseguera HOME CARE MANAGER Primary Care Provider [phone] Encounters Date Type Department Care Team Description 01/16/2025 Results Follow-Up [facility] [address] [facility] [address] [place] [address] Mindy Oseguera, ANTOINE 01/04/2025 1:28 PM CDT - 01/04/2025 11:59 PM CDT Hospital Encounter [facility] [address] [place] [address] Nicotine dependence, cigarettes, in remission Discharge Disposition: Discharge to home or self care from Last 3 Months Allergies Active Allergy Reactions Criticality Noted Date Comments Atorvastatin Rash Medium 10/30/2019 Alendronate Unknown 10/19/2023 Medications aspirin 81 mg enteric coated tablet Take 1 tablet (81 mg total) by mouth daily Active dihnsbua-tjx-PB-lycopen -lutein 0.4-300-250 mg-mcg-mcg tabletIndications:Vitam in Deficiency Prevention [...] 09/14 Assessment & Plan (09/14/2024 8:55 AM LIME VAT TENDER): CBC, CMP, lipid panel, PSA ordered. Colonoscopy [...] 09/07/2023 Assessment & Plan (09/07/2023 11:44 AM LIME VAT TENDER): Concerning, sending to derm Age-related osteoporosis wit hout current pathological fracture 09/07/2023 Assessment & Plan (09/14/2024 8:51 AM LIME VAT TENDER): Chronic, controlled with daily Vitamin D and Calcium supplements. Patient was unable to tolerate bisphosphonate causes vomiting and muscle cramping. DEXA scan UTD repeat next year. Assessment & Plan (03/12/2024 6:44 AM CDT): Can not tolerate fosomax, will stay with calcium and vitamin D Assessment & Plan (10/19/2023 11:06 AM LIME VAT TENDER): Can not tolerate fosomax, will stay with calcium and vitamin D Assessment & Plan (09/29/2023 12:37 PM LIME VAT TENDER): Chronic, uncontrolled. Patient to discontinue Fosamax due to muscle cramping. Patient to begin daily calcium and vitamin D supplement. Patient to follow up with DEVANTE Carpenter in 3 weeks to discuss other treatment options for his osteoporosis. Assessment & Plan (09/07/2023 12:38 PM LIME VAT TENDER): Educated, discussed options, elected to start Fosamax. 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 Follow up in 6 months. Assessment & Plan (01/02/2024 6:22 AM CDT): Continue D, add calcium Assessment & Plan (09/07/2023 12:33 PM LIME VAT TENDER): Continue D, add calcium Assessment & Plan (06/02/2022 10:57 AM CDT): Continue vitamin-D Assessment & Plan (03/16/2021 11:19 AM CDT): Continue taking 5000 daily Assessment & Plan (09/10/2020 12:03 PM LIME VAT TENDER): CPM Assessment & Plan (03/12/2020 11:35 AM CDT): CPM History of prostate cancer 02/01/2018 Assessment & Plan (09/10/2024 11:16 AM LIME VAT TENDER): Diagnosed in 2014, underwent radiation treatment. Following with urology yearly. Assessment & Plan (01/02/2024 6:22 AM CDT): Stable with no issues Assessment & Plan (09/07/2023 12:33 PM LIME VAT TENDER): Stable with no issues Assessment & Plan [...] 04/25/2017 Assessment & Plan (09/14/2024 8:52 AM LIME VAT TENDER): Chronic, controlled with Crestor 40 mg daily. [...] routine. Assessment & Plan (10/19/2023 11:08 AM LIME VAT TENDER): Patient is to continue present medications, work on diet and exercise as discussed, we did discuss the medications and potential side effects and signs and symptoms that would warrant calling office. Follow up routine. Assessment & Plan (09/07/2023 12:33 PM LIME VAT TENDER): Patient is to continue present medications, work [...] routine. Assessment & Plan (09/10/2020 12:02 PM LIME VAT TENDER): Diet and labs as ordered Assessment & Plan (03/12/2020 11:33 AM CDT): Very mild, OTC fish oil, diet and exercise, labs next visit PAD (peripheral artery disease) ([facility]) 2016 Assessment & Plan (09/14/2024 8:53 AM LIME VAT TENDER): Chronic, stable. Patient to continue on Crestor 40 mg daily. Follow up in 6 months. Assessment & Plan (03/12/2024 6:44 AM CDT): This is stable and non-smoker Assessment & Plan (01/02/2024 6:22 AM CDT): This is stable and non-smoker Assessment & Plan (10/19/2023 11:05 AM LIME VAT TENDER): This is stable and non-smoker Assessment & [...] follow Assessment & Plan (09/10/2020 12:02 PM LIME VAT TENDER): Not an issue Assessment & Plan (03/12/2020 11:33 AM CDT): Currently not an issue, must stop smoking, I offered my assistance Acquired absence of left leg above knee 06/04/20 Assessment & Plan (09/14/2024 8:46 AM LIME VAT TENDER): Patient has left lower leg prostatic, received 2 years ago. He ambulates with prostatic and a cane. Denies any recent falls. Follow up in 6 months. Assessment & Plan (03/12/2024 6:43 AM CDT): No current issues Assessment & Plan (01/02/2024 6:22 AM CDT): No current issues Assessment & Plan (10/19/2023 11:05 AM LIME VAT TENDER): No current issues Assessment & Plan (09/07/2023 12:27 PM LIME VAT TENDER): Stable with no issues Assessment & Plan [...] well Assessment & Plan (09/10/2020 12:02 PM LIME VAT TENDER): Will follow Assessment & Plan (03/12/2020 11:32 AM CDT): Pending new prosthesis, no issues Enlarged prostate with lower urinary tract sympt oms (LUTS) 06/04/2016 Assessment & Plan (09/14/2024 8:52 AM LIME VAT TENDER): Chronic, stable patient following with urology. No [...] 09/14/2024 Assessment & Plan (09/29/2023 12:36 PM LIME VAT TENDER): Patient to discontinue Fosamax. Patient given Toradol [...] & Plan (02/05/2021 12:04 PM CDT): Continue iunz-ykj-luknsud Robitussin and Mucinex medicines as ordered follow-up on Patient was doing better after I gave him a hand-held nebulizer Cellulitis of right lower extremity 03/12/2020 09/10/2024 Assessment & Plan (03/12/2020 11:35 AM CDT): This is new, medications as ordered, skin care, we did discuss s/s that would warrant further eval and treatment Smoker 10/03/2017 09/14/2024 Assessment & Plan (10/19/2023 11:05 AM LIME VAT TENDER): Quit 3 months ago Assessment & Plan (09/07/2023 12:33 PM LIME VAT TENDER): Encourage stopping Assessment & Plan (06/02/2022 10:56 [...] gum Assessment & Plan (09/10/2020 12:02 PM LIME VAT TENDER): quit Assessment & Plan (03/12/2020 11:33 AM [...] recommended Assessment & Plan (09/10/2020 12:03 PM LIME VAT TENDER): 2 year stability, no furhter work up [...] on file Legal Sex Male 1:01 PM LIME VAT TENDER Gender Identity Not on file Sexual Orientation Not on file Last Filed Vital Signs Vital Sign Reading Time Taken Comments Blood Pressure 118/80 09/10/2024 10:59 AM LIME VAT TENDER Pulse 72 09/10/2024 10:59 AM LIME VAT TENDER Temperature 36.1 C (97 F) 09/10/2024 10:59 AM LIME VAT TENDER Respiratory Rate 16 09/10/2024 10:59 AM LIME VAT TENDER Oxygen Saturation 95% 09/10/2024 10:59 AM LIME VAT TENDER Inhaled Oxygen Concentration - - Weight 94.5 kg (208 lb 6.4 oz) 09/10/2024 10:59 AM LIME VAT TENDER Height 185.4 cm (6' 1 ) 09/10/2024 10:59 AM LIME VAT TENDER Body Mass Index 27.5 09/10/2024 10:59 AM LIME VAT TENDER Plan of Treatment Not on file Procedures Procedure Name Priority Date/Time Associated Diagnosis Comments CT LUNG CANCER SCREENING Schedule Routine, Read Routine (OP Routine) 01/04/2025 1:38 PM CDT Nicotine dependence, cigarettes, in remission PSA SCREEN Routine 09/10/2024 11:55 AM LIME VAT TENDER History of prostate cancer COLONOSCOPY 10/10/2023 9:51 AM LIME VAT TENDER US ABDOMINAL AORTIC ANEURYSM SCREENING Schedule Routine, Read Routine (OP Routine) 09/01/2023 10:00 AM LIME VAT TENDER Screening for AAA (abdominal aortic aneurysm) HEPATITIS C ANTIBODY Routine 09/14/2019 8:27 AM LIME VAT TENDER Need for hepatitis C screening test from [...] Edward Resendez D.O. PS: PS Report ID: [id number] Reading Location: [place] [address] Procedure Note Edward Resendez, - 01/15/2025 EXAM [...] Edward Resendez D.O. PS: PS Report ID: [id number] Reading Location: [place] [address] us Mindy Oseguera HOME CARE MANAGER IMG CT PROCEDURES Final Result * PSA screen (09/10/2024 11:55 AM LIME VAT TENDER) PSA-Total 0.68 <=6.20 ng/mL Comment: Interpretive Data [...] data last revised 22. Testing performed by: [facility], [address] [place] [address]., [address] Blood 09/10/2024 11:5 5 AM LIME VAT TENDER 09/10/2024 1:00 PM LIME VAT TENDER us Mindy Oseguera NP LAB BLOOD ORDERABLES Final [facility] [address] [facility] Department [place] [address] * COLONOSCOPY (10/10/2023 9:51 AM LIME VAT TENDER) Anatomical Region Laterality Modality Other Narrative Procedure Note Jass Godfrey MD - 10/10/2023 9:51 AM CST [facility] GI ENDOSCOPY Patient Name: Onel Flynn Procedure Date: 10/10/2023 9:51 AM Date of : 1950 Admit Type: Outpatient Age: 73 Gender: Male Attending MD: Jass Gofdrey M.D. Room: [facility] ENDOSCOPY ROOM 05 Note Status: Finalized [...] The scope was passed under direct vision.The [id number] colonoscope was introduced through theanus and advanced [...] On: 10/10/2023 9:51 AM Recognized by the [employer] for promoting quality in endoscopy Jass Godfrey MD ENDOSCOPY PROCEDURES Fin al Result * US Abdominal Aortic Aneurysm Screening (09/01/2023 10:00 AM LIME VAT TENDER) Anatomical Region Laterality Modality Abdomen Ultrasound 09/02/2023 8:14 AM LIME VAT TENDER Narrative 09/02/2023 8:15 AM LIME VAT TENDER EXAM DESCRIPTION: US ABDOMINAL AORTIC ANEURYSM SCREENING [...] Kuldip Winn M.D. CH: MILDRED Report ID: [id number] Reading Location: [id number] Procedure Note Kuldip Winn Jr., MD - [...] by Kuldip Winn M.D. CH: Report ID: [id number] Reading Location: [id number] Cecilio LOW IMG US PROCEDURES Final Result * Hepatitis C antibody (09/14/2019 8:27 AM LIME VAT TENDER) Hep C Ab TNP NONREACTIVE [facility] Comment: SPECIMEN SENT TO [facility] FOR TESTING Blood specimen (specimen) 09/14/2019 8:27 AM LIME VAT TENDER 09/14/2019 8:59 AM LIME VAT TENDER Narrative Resulting Agency Comment CLI Cecilio LOW LAB MICROBIOLOGY - GENERAL [place] Final Result [facility] [address] [place] [address], [facility] [phone] from Last 3 Months or Most Recently Relevant to Health Maintenance Insurance [employer] [facility] [place] [id number] CIG[employer] MEDICARE ADV UHC MEDICARE ADVANTAGE Care Teams Child Monitor Relationship Specialty Start Date End Date Mindy Oseguera NP [address] [place] [address] PCP - General Family Medicine 01/16/25
== END 2025-01-24 23:36 | disposition left against medical advice (07) ==
LOC: ANHED 23:42
PROVIDERS: PCP Physician Assistant
DX: L98.9 Disorder of the skin and subcutaneous tissue, unspecified (principal)
CPT/HCPCS: 99199